=== PATIENT | female | born 1935 | race Caucasian/White ===

== ENCOUNTER 2016-06-16 13:02 | Outpatient (CLI) | payer MEDICARE, OTHER | END 2016-06-16 13:03 | disposition home or self-care (01) | DX: E78.5 Hyperlipidemia, unspecified (principal); I10 Essential (primary) hypertension ==

== ENCOUNTER 2016-09-14 11:11 | Outpatient (CLI) | payer MEDICARE, OTHER ==
[2016-09-14 13:04] LABS: ALBUMIN/GLOBULIN RATIO 1.2 (1.0-2.2); BILIRUBIN,TOTAL 0.8 mg/dL (0.2-1.0); CALCIUM 9.3 mg/dL (8.5-10.3); CREATININE 0.9 mg/dL (0.4-1.0); POTASSIUM 4.1 mmol/L (3.5-5.0)
== END 2016-09-14 11:12 | disposition home or self-care (01) ==
LOC: LAB.N 11:11
PROVIDERS: ATTEND Family Medicine
DX: F33.9 Major depressive disorder, recurrent, unspecified (principal)
CPT/HCPCS: 36415; 80053

== ENCOUNTER 2017-02-23 19:25 | Outpatient (CLI) | payer MEDICARE, OTHER ==
[2017-02-23 19:18] LABS: CREATININE 0.8 mg/dL (0.4-1.0)
== END 2017-02-23 19:26 | disposition home or self-care (01) ==
LOC: LAB.N 19:25
PROVIDERS: ATTEND Family Medicine
DX: F03.90 Unspecified dementia, unspecified severity, without behavioral disturbance, psychotic disturbance, mood disturbance, and anxiety (principal); I10 Essential (primary) hypertension
CPT/HCPCS: 36415; 82565; 84520

== ENCOUNTER 2017-05-11 08:00 | Outpatient (CLI) | payer MEDICARE, OTHER | END 2017-05-11 08:01 | disposition home or self-care (01) | LOC: LAB.R 08:00 | PROVIDERS: ATTEND Family Medicine | DX: N39.46 Mixed incontinence (principal) | CPT/HCPCS: 87086 ==

== ENCOUNTER 2021-02-21 12:19 | Outpatient (CLI) | payer MEDICARE, OTHER | END 2021-02-21 12:20 | disposition critical access hospital (66) | LOC: EMS 12:19 | DX: R46.4 Slowness and poor responsiveness (principal) | CPT/HCPCS: A0425; A0427 ==

== ENCOUNTER 2021-02-21 12:32 | Inpatient (IN) | payer MEDICARE, OTHER ==
--- NOTE | 2021-02-21 12:46 | ED Physician Documentation ---
PD HPI ALTERED MENTAL STATUS - Stated complaint Stated Complaint: FOUND UNRESPONSIVE - Chief complaint Chief Complaint: Neuro - History obtained from History obtained from: EMS - History of Present Illness Timing - onset: Today Contributing factors: Known dementia Basline status: Ambulatory Treatment FORGE HAND: Accucheck Similar symptoms before: Has not had sx before - Additional information Additional information: Patient is an 85-year-old female who presents to the emergency department with altered mental status today. History is from EMS. Per EMS she does have a longstanding history of dementia, but is normally verbal and oriented to person and place. Today the found her in bed and she was difficult to arouse and not speaking. 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 No trauma. No changes to her medications. EMS states no fevers. They did state that she was hypoxic upon their arrival and they placed her on supplemental oxygen. Blood sugar was normal. Review of Systems Unable to obtain: AMS, Dementia PD PAST MEDICAL HISTORY - Past Medical History Past Medical History: Yes Neuro: Dementia - Present Medications Home Medications: Ambulatory Orders Medication Instructions Recorded Confirmed Albuterol Sulfate [Proair Hfa 2 puffs INH Q4HR 02/21/21 02/21/21 Inhaler] Amlodipine Besylate [Norvasc] 2.5 mg PO BID 02/21/21 02/21/21 Aspirin/Dipyridamole 1 tab PO BID 02/21/21 02/21/21 [Aspirin-Dipyridam ER 25-200 mg] Citalopram [CeleXA] 30 mg PO DAILY 02/21/21 02/21/21 Desipramine HCl 100 mg PO HS 02/21/21 02/21/21 Donepezil [Aricept] 10 mg PO HS 02/21/21 02/21/21 HYDROcod/ACETAM 5/325 [[place] 5/325] 1 tab PO Q4HR 02/21/21 02/21/21 Loratadine [Claritin] 10 mg PO BID 02/21/21 02/21/21 Losartan Potassium [Cozaar] 100 mg PO DAILY 02/21/21 02/21/21 Memantine HCl [Namenda] 10 mg PO BID 02/21/21 02/21/21 Metoprolol Succinate [Kapspargo 50 mg PO DAILY 02/21/21 02/21/21 Sprinkle] Multivitamin 1 tab PO DAILY 02/21/21 02/21/21 Nystatin Cream [Mycostatin Cream] 1 applic TOP QID 02/21/21 02/21/21 Omeprazole Magnesium 40 mg PO QDAC 02/21/21 02/21/21 Solifenacin Succinate [Vesicare] 10 mg PO DAILY 02/21/21 02/21/21 polyethylene glycoL 3350 17 gm PO DAILY 02/21/21 02/21/21 [Polyethylene Glycol 3350] - Allergies Allergies/Adverse Reactions: Allergies Allergy/AdvReac Type Severity Reaction Status Date / Time amoxicillin Allergy Unknown Verified 02/21/21 12:44 guaifenesin Allergy Unknown Verified 02/21/21 12:44 - Living Situation Living Situation: reports: With family Living Arrangement: reports: At home - Social History Does the pt smoke?: No Does the pt drink ETOH?: No Does the pt have substance abuse?: No - Family History Family history: reports: Non contributory PD ED PE NORMAL - Vitals Vital signs reviewed: Yes - General General: No acute distress, Other (urine soaked diaper and clothes) - HEENT HEENT: PERRL, Other (dry lips and tongue) - Neck Neck: Supple, no meningeal sign - Cardiac Cardiac: RRR - Respiratory Respiratory: No respiratory distress, Clear bilaterally - Abdomen Abdomen: Soft, Non tender, Non distended - Derm Derm: Other (small wound to the R upper thigh) - Extremities Extremities: Other (1+ BLE edema) - Neuro Neuro: Other (alert, but non-verbal) Eye Opening: Spontaneous Motor: Withdraws to Pain Verbal: Inappropriate GCS Score: 11 Results - Vitals Vitals: Vital Signs - 24 hr 02/21/21 02/21/21 02/21/21 12:36 14:00 14:30 Temperature 37.7 C Heart Rate 75 73 81 Respiratory 18 14 18 Rate Blood Pressure 147/89 H 157/68 H 164/125 H O2 Saturation 98 96 96 Oxygen O2 Source Room air - EKG (time done) 1324 Rate: Rate (enter#) (73) Rhythm: NSR [place]: Normal Intervals: Prolonged MD QRS: Normal, LVH Ischemia: Q waves (III, aVF) - Labs Labs: Laboratory Tests 02/21/21 02/21/21 02/21/21 13:08 13:08 13:08 WBC 6.8 RBC 3.69 L Hgb 11.5 L Hct 36.5 L MCV 98.9 MCH 31.2 H MCHC 31.5 L RDW 13.0 Plt Count 204 MPV 9.0 Neut # (Auto) 4.9 Lymph # (Auto) 1.1 L [place] # (Auto) 0.6 Eos # (Auto) 0.1 Baso # (Auto) 0.1 Absolute Nucleated RBC 0.00 Nucleated RBC % 0.0 Sodium 138 Potassium 3.9 Chloride 101 Carbon Dioxide 28 Anion Gap 9.0 BUN 17 Creatinine 0.9 Estimated GFR (MDRD) 60 L Glucose 104 H Lactic Acid Calcium 8.6 Total Bilirubin 0.8 AST 27 ALT 19 Alkaline Phosphatase 64 Troponin I High Sens Total Protein 6.6 L Albumin 3.6 Globulin 3.0 Albumin/Globulin Ratio 1.2 Lipase 19 L TSH 3.53 Urine Color Urine Clarity Urine pH Ur Specific [place] Urine Protein Urine Glucose (UA) Urine Ketones Urine Occult Blood Urine Nitrite Urine Bilirubin Urine Urobilinogen Ur Leukocyte Esterase Urine RBC Urine WBC Ur Squamous Epith Cells Urine Bacteria Ur Microscopic Review Urine Culture Comments Nasal Adenovirus (PCR) Nasal B. parapertussis DNA (PCR) Nasal Coronavir 229E PCR Nasal Coronavir HKU1 PCR Nasal Coronavir NL63 PCR Nasal Coronavir OC43 PCR Nasal Enterovir/Rhinovir PCR Nasal Influenza B PCR Nasal Influenza A PCR Nasal Parainfluen 1 PCR Nasal Parainfluen 2 PCR Nasal Parainfluen 3 PCR Nasal Parainfluen 4 PCR Nasal RSV (PCR) Nasal B.pertussis DNA PCR Nasal C.pneumoniae (PCR) George Human Metapneumo PCR Nasal M.pneumoniae (PCR) Nasal SARS-CoV-2 (PCR) Salicylates < 6.0 Urine Opiates Screen Ur Oxycodone Screen Urine Methadone Screen Ur Propoxyphene Screen Acetaminophen < 10 L Ur Barbiturates Screen Ur Tricyclics Screen Ur Phencyclidine Scrn Ur Amphetamine Screen U Methamphetamines Scrn U Benzodiazepines Scrn Urine Cocaine Screen U Cannabinoids Screen Ethyl Alcohol < 5.0 02/21/21 02/21/21 02/21/21 13:08 13:36 13:46 WBC RBC Hgb Hct MCV MCH MCHC RDW Plt Count MPV Neut # (Auto) Lymph # (Auto) [place] # (Auto) Eos # (Auto) Baso # (Auto) Absolute Nucleated RBC Nucleated RBC % Sodium Potassium Chloride Carbon Dioxide Anion Gap BUN Creatinine Estimated GFR (MDRD) Glucose Lactic Acid Calcium Total Bilirubin AST ALT Alkaline Phosphatase Troponin I High Sens 1445.2 H* Total Protein Albumin Globulin Albumin/Globulin Ratio Lipase TSH Urine Color YELLOW Urine Clarity CLOUDY Urine pH 7.5 Ur Specific [place] 1.020 Urine Protein 30 H Urine Glucose (UA) NEGATIVE Urine Ketones NEGATIVE Urine Occult Blood MODERATE H Urine Nitrite NEGATIVE Urine Bilirubin NEGATIVE Urine Urobilinogen 0.2 (NORMAL) Ur Leukocyte Esterase MODERATE H Urine RBC 0-5 Urine WBC >25 H Ur Squamous Epith Cells FEW Squamous Urine Bacteria Many H Ur Microscopic Review INDICATED Urine Culture Comments INDICATED Nasal Adenovirus (PCR) NOT DETECTED Nasal B. parapertussis DNA (PCR) NOT DETECTED Nasal Coronavir 229E PCR NOT DETECTED Nasal Coronavir HKU1 PCR NOT DETECTED Nasal Coronavir NL63 PCR NOT DETECTED Nasal Coronavir OC43 PCR NOT DETECTED Nasal Enterovir/Rhinovir PCR NOT DETECTED Nasal Influenza B PCR NOT DETECTED Nasal Influenza A PCR NOT DETECTED Nasal Parainfluen 1 PCR NOT DETECTED Nasal Parainfluen 2 PCR NOT DETECTED Nasal Parainfluen 3 PCR NOT DETECTED Nasal Parainfluen 4 PCR NOT DETECTED Nasal RSV (PCR) NOT DETECTED Nasal B.pertussis DNA PCR NOT DETECTED Nasal C.pneumoniae (PCR) NOT DETECTED [place] Human Metapneumo PCR NOT DETECTED Nasal M.pneumoniae (PCR) NOT DETECTED Nasal SARS-CoV-2 (PCR) NOT DETECTED Salicylates Urine Opiates Screen NEGATIVE Ur Oxycodone Screen NEGATIVE Urine Methadone Screen NEGATIVE Ur Propoxyphene Screen NEGATIVE Acetaminophen Ur Barbiturates Screen NEGATIVE Ur Tricyclics Screen NEGATIVE Ur Phencyclidine Scrn NEGATIVE Ur Amphetamine Screen NEGATIVE U Methamphetamines Scrn NEGATIVE U Benzodiazepines Scrn NEGATIVE Urine Cocaine Screen NEGATIVE U Cannabinoids Screen NEGATIVE Ethyl Alcohol 02/21/21 13:51 WBC RBC Hgb Hct MCV MCH MCHC RDW Plt Count MPV Neut # (Auto) Lymph # (Auto) [place] # (Auto) Eos # (Auto) Baso # (Auto) Absolute Nucleated RBC Nucleated RBC % Sodium Potassium Chloride Carbon Dioxide Anion Gap BUN Creatinine Estimated GFR (MDRD) Glucose Lactic Acid 0.8 Calcium Total Bilirubin AST ALT Alkaline Phosphatase Troponin I High Sens Total Protein Albumin Globulin Albumin/Globulin Ratio Lipase TSH Urine Color Urine Clarity Urine pH Ur Specific [place] Urine Protein Urine Glucose (UA) Urine Ketones Urine Occult Blood Urine Nitrite Urine Bilirubin Urine Urobilinogen Ur Leukocyte Esterase Urine RBC Urine WBC Ur Squamous Epith Cells Urine Bacteria Ur Microscopic Review Urine Culture Comments Nasal Adenovirus (PCR) Nasal B. parapertussis DNA (PCR) Nasal Coronavir 229E PCR Nasal Coronavir HKU1 PCR Nasal Coronavir NL63 PCR Nasal Coronavir OC43 PCR Nasal Enterovir/Rhinovir PCR Nasal Influenza B PCR Nasal Influenza A PCR Nasal Parainfluen 1 PCR Nasal Parainfluen 2 PCR Nasal Parainfluen 3 PCR Nasal Parainfluen 4 PCR Nasal RSV (PCR) Nasal B.pertussis DNA PCR Nasal C.pneumoniae (PCR) [place] Human Metapneumo PCR Nasal M.pneumoniae (PCR) Nasal SARS-CoV-2 (PCR) Salicylates Urine Opiates Screen Ur Oxycodone Screen Urine Methadone Screen Ur Propoxyphene Screen Acetaminophen Ur Barbiturates Screen Ur Tricyclics Screen Ur Phencyclidine Scrn Ur Amphetamine Screen U Methamphetamines Scrn U Benzodiazepines Scrn Urine Cocaine Screen U Cannabinoids Screen Ethyl Alcohol - Rads (name of study) head CT Radiology: Final report received, EMP read contemporaneously, See rad report (No acute intracranial abnormality. Volume loss and small vessel ischemic disease) cxr Radiology: Final report received, EMP read contemporaneously, See rad report chest CT Radiology: Final report received, EMP read contemporaneously, See rad report PD MEDICAL DECISION MAKING - ED course Complexity details: reviewed results, re-evaluated patient, considered differential, d/w family, d/w architectural sales consultant ED course: 85-year-old female presents to the emergency department altered mental status. She is found to have an NSTEMI that she has significant dementia. The family states that she is DNR with limited interventions and they do have a POLST form. They state that she would not want cardiac catheterization or stents and they do not believe that she would likely survive the procedure. The patient also has a UTI and we will place on antibiotics for this. She was given Lovenox for the NSTEMI. We will admit for further care. Discussed the case with the hospitalist, Dr. Colbert who accepts This document was made in part using voice recognition software. While efforts are made to proofread this document, sound alike and grammatical errors may occur. 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 Mild cardiomegaly Additional chronic and incidental findings as above. Departure - Departure Disposition: 66 [facility] DC/Xfer Clinical Impression: NSTEMI (non-ST elevated myocardial infarction) Altered mental status Qualifiers: Altered mental status type: somnolence Qualified Code(s): R40.0 - Somnolence UTI (urinary tract infection) Qualifiers: Urinary tract infection type: acute cystitis Hematuria presence: without hematuria Qualified Code(s): N30.00 - Acute cystitis without hematuria Condition: Stable Discharge Date/Time: 02/21/21 16:03
--- NOTE | 2021-02-21 13:11 | XRAY Report ---
PROCEDURE: Chest 1 View X-Ray INDICATIONS: hypoxia TECHNIQUE: One view of the chest was acquired. COMPARISON: None FINDINGS: Surgical changes and devices: None. Lungs and pleura: No pleural effusions or pneumothorax. Masslike opacity noted adjacent to the right margin of the heart which may represent pericardial cyst or fat however lung masses not excluded by this study. Mediastinum: Mediastinal contours appear normal. Heart is enlarged. Bones and chest wall: No suspicious bony lesions. Overlying soft tissues appear unremarkable. IMPRESSION: Masslike opacity in the medial aspect of the right lung base. Finding may be related to pericardial c yst or fat, however neoplastic process involving the right lung is not excluded by this study. Recomm end CT scan of the chest for additional evaluation when clinically feasible. Reviewed by: Adelaida Hercules MD, PhD on 02/21/2021 1:10 PM PST Approved by: Adelaida Hercules MD, PhD on 02/21/2021 1:10 PM [facility] Station ID: [id number]
[2021-02-21 13:14] LABS: BASOPHILS # (AUTO) 0.1 10^3/uL (0.0-0.1); BASOPHILS % (AUTO) 0.7 %; EOSINOPHILS # (AUTO) 0.1 10^3/uL (0.0-0.7); EOSINOPHILS % (AUTO) 1.9 %; HCT - HEMATOCRIT 36.5 % (37.0-47.0); HGB - HEMOGLOBIN 11.5 g/dL (12.0-16.0); LYMPHOCYTES # (AUTO) 1.1 10^3/uL (1.5-3.5); LYMPHOCYTES % (AUTO) 16.3 %; MEAN CORPUSCULAR HEMOGLOBIN 31.2 pg (27.0-31.0); MEAN CORPUSCULAR HGB CONC 31.5 g/dL (32.0-36.0); MEAN CORPUSCULAR VOLUME 98.9 fL (81.0-99.0); MONOCYTES # (AUTO) 0.6 10^3/uL (0.0-1.0); NEUTROPHILS # (AUTO) 4.9 10^3/uL (1.5-6.6); NEUTROPHILS % (AUTO) 71.8 %; PLT - PLATELET COUNT 204 10^3/uL (130-450); RED BLOOD COUNT 3.69 10^6/uL (4.20-5.40); WHITE BLOOD COUNT 6.8 x10^3/uL (4.8-10.8)
--- NOTE | 2021-02-21 13:27 | CT Report ---
PROCEDURE: HEAD WO INDICATIONS: altered mental status TECHNIQUE: Noncontrast 4.5 mm thick angled axial sections acquired from the foramen magnum to the vertex. For r adiation dose reduction, the following was used: automated exposure control, adjustment of mA and/or kV according to patient size. COMPARISON: None. FINDINGS: Image quality: Excellent. CSF spaces: Basal cisterns are patent. No extra-axial fluid collections. Ventricles are normal in size and shape. Brain: No midline shift. No intracranial masses or hemorrhage. Moderate diffuse cerebral volume los s. Moderate degree of patchy low density within the periventricular and subcortical white matter. Gra y-white matter interface is normal. Skull and face: Calvarium and visualized facial bones are intact, without suspicious lesions. Sinuses: Visualized sinuses and mastoids are clear. IMPRESSION: No acute intracranial abnormality. Volume loss and small vessel ischemic disease. Reviewed by: Monet Cosby MD on 02/21/2021 1:25 PM PST Approved by: Monet Cosyb MD on 02/21/2021 1:25 PM [facility] Station ID: [id number]
[2021-02-21 13:34] LABS: ACETAMINOPHEN < 10 ug/mL (10-30); ALBUMIN 3.6 g/dL (3.2-5.5); ALBUMIN/GLOBULIN RATIO 1.2 (1.0-2.2); ALKALINE PHOSPHATASE 64 IU/L (42-121); ALT ALANINE AMINOTRANSFERASE 19 IU/L (10-60); AST ASPARTATE AMINOTRANSFERASE 27 IU/L (10-42); BILIRUBIN,TOTAL 0.8 mg/dL (0.2-1.0); BUN - BLOOD UREA NITROGEN 17 mg/dL (6-20); CALCIUM 8.6 mg/dL (8.5-10.3); CARBON DIOXIDE - CO2 28 mmol/L (21-32); CHLORIDE 101 mmol/L (101-111); CREATININE 0.9 mg/dL (0.4-1.0); ETOH - ETHANOL < 5.0 mg/dL; GFR - MDRD 60 (>89); GLUCOSE 104 mg/dL (70-100); LIPASE 19 U/L (22-51); POTASSIUM 3.9 mmol/L (3.5-5.0); SALICYLATE < 6.0 mg/dL; SODIUM 138 mmol/L (135-145); TOTAL PROTEIN 6.6 g/dL (6.7-8.2)
[2021-02-21 13:47] LABS: MUDS CUTOFF CONCENTRATIONS CUTOFF CONC BELOW:
[2021-02-21 13:51] LABS: BILIRUBIN,URINE NEGATIVE (NEGATIVE); GLUCOSE, URINE (UA) NEGATIVE (NEGATIVE); KETONES,URINE (UA) NEGATIVE (NEGATIVE); LEUKOCYTE ESTERASE, URINE MODERATE (NEGATIVE); NITRITE,URINE NEGATIVE (NEGATIVE); OCCULT BLOOD,URINE MODERATE (NEGATIVE); PH,URINE 7.5 PH (5.0-7.5); PROTEIN,URINE 30 mg/dL (NEGATIVE); UROBILINOGEN,URINE 0.2 (NORMAL) E.U./dL (NORMAL)
[2021-02-21 13:59] LABS: CLARITY,URINE CLOUDY (CLEAR)
[2021-02-21 14:02] LABS: AMPHETAMINE SCREEN,URINE NEGATIVE (NEGATIVE); BARBITURATE SCREEN,UR NEGATIVE (NEGATIVE); BENZODIAZEPINES SCREEN, URINE NEGATIVE (NEGATIVE); COCAINE SCREEN URINE NEGATIVE (NEGATIVE); METHADONE SCREEN, URINE NEGATIVE (NEGATIVE); METHAMPHETAMINES SCREEN, URINE NEGATIVE (NEGATIVE); OPIATE SCREEN, URINE NEGATIVE (NEGATIVE); OXYCODONE SCREEN, URINE NEGATIVE (NEGATIVE); PROPOXYPHENE SCREEN, URINE NEGATIVE (NEGATIVE); THC CANNABINOID SCREEN, URINE NEGATIVE (NEGATIVE); TRICYCLIC ANTIDEPRESSANT,URINE NEGATIVE (NEGATIVE)
[2021-02-21 14:10] LABS: RBC,URINE 0-5 /HPF (0-5); SQUAMOUS EPITHELIAL CELL,UR FEW Squamous (<= Few); WBC,URINE >25 /HPF (0-5)
[2021-02-21 14:11] LABS: BACTERIA,URINE Many /HPF (None Seen)
[2021-02-21] MEDS ORDERED: IOVERSOL 320 100 ML VIAL IVP ONE ×2 (14:14→14:37)
--- NOTE | 2021-02-21 14:48 | CT Report ---
PROCEDURE: CHEST W INDICATIONS: possible mass on CXR CONTRAST: IV CONTRAST: Optiray 320 ml: 100 PO CONTRAST: *NO PO CONTRAST TECHNIQUE: After the administration of intravenous contrast, 5 mm thick sections acquired from the pulmonary api nargis to the posterior costophrenic angles. 7 mm thick coronal MIP reformats were acquired. For radia tion dose reduction, the following was used: automated exposure control, adjustment of mA and/or kV according to patient size. COMPARISON: Chest radiograph dated 02/21/2021 FINDINGS: CHEST: Lungs: Scattered subsegmental scarring/atelectasis. No acute consolidation. Right posterior diaphrag matic hernia containing stomach and fat accounting for the radiographic opacity on the comparison radha dy. There is adjacent atelectasis. No discrete mass lesion. Pleura: No pleural effusion or pneumothorax. Heart: Mildly enlarged. No pericardial effusion. There is mitral valvular and coronary artery calcifi cations, moderate Lymph nodes: Normal. Thyroid: Low-attenuation 9 mm nodule involving the right lobe of the thyroid which would be better as sessed with ultrasound as clinically warranted. Aorta: Enlargement of the keisha ascending thoracic aorta measuring proximally 4.5 cm in diameter. Scatt ered atheromatous calcifications seen in the aorta. Pulmonary arteries: r Esophagus: Normal. Bones: Diffuse spondolytic changes and facet arthropathy. No compression fracture. There is severe k yphosis. Diffuse osteopenia. 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 Mild cardiomegaly Additional chronic and incidental findings as above. Reviewed by: Saeid Milian MD on 02/21/2021 2:47 PM PST Approved by: Saeid Milian MD on 02/21/2021 2:47 PM PST Station ID: [id number]
[2021-02-21] MEDS ORDERED: ENOXAPARIN 80 MG/0.8 ML SYRINGE SUBQ STA (14:51)
[2021-02-21] MEDS ORDERED: cefTRIAXone 1 GM VIAL IVP STA (14:52)
[2021-02-21] MEDS ORDERED: ONDANSETRON 4 MG/2 ML VIAL IVP PRN (14:52)
[2021-02-21] MEDS ORDERED: ACETAMINOPHEN 325 MG TABLET PO PRN (14:52)
[2021-02-21] MEDS ORDERED: SODIUM CHLORIDE 0.9% 1,000 ML IV SCH (15:00)
[2021-02-21 15:10] LABS: CORONAVIRUS 229E-RESP PCR NOT DETECTED; CORONAVIRUS HKU1-RESP PCR NOT DETECTED; CORONAVIRUS NL63-RESP PCR NOT DETECTED; CORONAVIRUS OC43-RESP PCR NOT DETECTED; HUMAN METAPNEUMOVIRUS NOT DETECTED; INFLUENZA A- RESP PCR PANEL NOT DETECTED; RHINOVIRUS/ENTEROVIRUS NOT DETECTED; SARS-CoV-2 -RESP PCR PANEL NOT DETECTED
[2021-02-21 15:11] LABS: B. PARAPERTUSSIS- RESP PCR PAN NOT DETECTED; B. PERTUSSIS- RESP PCR PANEL NOT DETECTED; C. PNEUMONIAE- RESP PCR PANEL NOT DETECTED; INFLUENZA B - RESP PCR PANEL NOT DETECTED; M. PNEUMONIAE- RESP PCR PANEL NOT DETECTED; PARAINFLUENZA VIRUS 1 NOT DETECTED; PARAINFLUENZA VIRUS 2 NOT DETECTED; PARAINFLUENZA VIRUS 3 NOT DETECTED; PARAINFLUENZA VIRUS 4 NOT DETECTED; RSV- RESP PCR PANEL NOT DETECTED
--- NOTE | 2021-02-21 15:13 | HISTORY & PHYSICAL EXAMINATION ---
Chief Complaint - Chief Complaint Chief Complaint: unresponsive History of Present Illness - Admitted From Admitted From:: [facility] ED - History Obtained From Records Reviewed: yes History obtained from: ED physician and patient's family members Exam Limitations: altered mental status, dementia - History of Present Illness HPI Comment/Other: Patient is an 85-year-old female with medical history significant for previous CVA with right-sided residual weakness and contracture, dementia, hypertension, depression, GERD, overactive bladder who was brought to the ED by EMS. Her called 911 this morning because the patient was unresponsive this morning around 10 am when he tried to wake her up At bedside the patient is unresponsive to verbal stimuli. The reports that she complained of mild left leg pain before bed the previous night. In the ED work-up included troponin level which came back at 1445.2. Urine analysis was also suggestive of a UTI. Family opted for conservative/medical management only. As a result the patient was presented for admission for further treatment. 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 Patient lives at home with her and daughter. She is completely dependent for activities of daily living. She is maximum assist and nonweightbearing. She has contracture in her right upper extremity from a previous CVA and significant rigidity of her right lower extremity. She is bedridden/wheelchair bound. - Substance History Use: Uses substance without health or social issues: Cocaine - POLST Patient has POLST: No POLST Status: DNR (Discussed with ) Meds/Allgy - Home Medications Home Medications: Ambulatory Orders Medication Instructions Recorded Confirmed Albuterol Sulfate [Proair Hfa 2 puffs INH Q4HR 02/21/21 02/21/21 Inhaler] Amlodipine Besylate [Norvasc] 2.5 mg PO BID 02/21/21 02/21/21 Aspirin/Dipyridamole 1 tab PO BID 02/21/21 02/21/21 [Aspirin-Dipyridam ER 25-200 mg] Citalopram [CeleXA] 30 mg PO DAILY 02/21/21 02/21/21 Desipramine HCl 100 mg PO HS 02/21/21 02/21/21 Donepezil [Aricept] 10 mg PO HS 02/21/21 02/21/21 HYDROcod/ACETAM 5/325 [[place] 5/325] 1 tab PO Q4HR 02/21/21 02/21/21 Loratadine [Claritin] 10 mg PO BID 02/21/21 02/21/21 Losartan Potassium [Cozaar] 100 mg PO DAILY 02/21/21 02/21/21 Memantine HCl [Namenda] 10 mg PO BID 02/21/21 02/21/21 Metoprolol Succinate [Kapspargo 50 mg PO DAILY 02/21/21 02/21/21 Sprinkle] Multivitamin 1 tab PO DAILY 02/21/21 02/21/21 Nystatin Cream [Mycostatin Cream] 1 applic TOP QID 02/21/21 02/21/21 Omeprazole Magnesium 40 mg PO DAILY 02/21/21 02/21/21 Solifenacin Succinate [Vesicare] 10 mg PO DAILY 02/21/21 02/21/21 polyethylene glycoL 3350 17 gm PO DAILY 02/21/21 02/21/21 [Polyethylene Glycol 3350] - Allergies Allergies/Adverse Reactions: Allergies Allergy/AdvReac Type Severity Reaction Status Date / Time amoxicillin Allergy Unknown Verified 02/21/21 12:44 guaifenesin Allergy Unknown Verified 02/21/21 12:44 Review of Systems - Constitutional Constitutional: denies: Fever, Chills - Eyes Eyes: denies: Pain - Ears, Nose & Throat Ears, Nose & Throat: denies: Sore throat - Cardiovascular Cariovascular: denies: Irregular heart rate, Palpitations, Chest pain, Edema, Lightheadedness, Syncope - Respiratory Respiratory: denies: Cough, Wheezing, SOB at rest, SOB with exertion - Gastrointestinal Gastrointestinal: denies: Abdominal pain, Abdominal distention, Constipation, Diarrhea, Bloody stools, Nausea, Vomiting - Genitourinary Genitourinary: reports: Incontinence. denies: Dysuria, Frequency, Urgency, Hematuria - Musculoskeletal Musculoskeletal: reports: Other (Right sided residual weakness from previous CVA). denies: Muscle pain, Back pain, Muscle aches - Integumentary Integumentary: denies: Rash, Pruritis, Lesions, Dryness - Neurological Neurological: reports: Focal weakness (Right sided residual weakness from prev ious CVA with contracture). denies: General weakness, Headache, Dizziness - Psychiatric Psychiatric: reports: Depression. denies: Anxiety - Endocrine Endocrine: denies: Polyuria, Polydypsia - Hematologic/Lymphatic Hematologic/Lymphatic: denies: Anemia, Bruising Prior Level of Functionality: Patient has dementia at baseline Patient lives at home with her and daughter. She is completely dependent for activities of daily living. She is maximum assist and nonweightbearing. She has contracture in her right upper extremity from a previous CVA and significant rigidity of her right lower extremity. She is bedridden/wheelchair bound. Exam - Vital Signs Vital Signs: Vital Signs x48h Temp Pulse Resp BP Pulse Ox 02/21/21 15:09 83 19 173/78 H 97 02/21/21 14:30 81 18 164/125 H 96 02/21/21 14:00 73 14 157/68 H 96 02/21/21 12:36 37.7 C 75 18 147/89 H 98 - Physical Exam General Appearance: positive: No acute distress, Other (Unresponsive to tactile or verbal stimuli) Eyes Bilateral: positive: PERRL, EOMI ENT: positive: No signs of dehydration Neck: positive: No JVD, Trachea midline Respiratory: positive: Chest non-tender, No respiratory distress, Breath sounds nml. negative: Wheezes, Rales, Rhonchi Cardiovascular: positive: Regular rate & rhythm, Systolic murmur (3/6 blowing. Known murmur for manay years) Abdomen: positive: Non-tender, No organomegaly, Nml bowel sounds, No distention. negative: Guarding, Rebound Back: positive: Nml inspection Skin: positive: Color nml, No rash, Warm, Dry Extremities: positive: Non-tender, Full ROM, Nml appearance, No pedal edema Neurologic/Psychiatric: positive: Disoriented to person, Disoriented to place, Disoriented to time Conclusion/Plan - Problem List (1) NSTEMI (non-ST elevated myocardial infarction) Conclusion/Plan: Initial troponin was 1445.2. Will trend times tomorrow. Family opted for conservative/medical management and no cardiology consult or intervention. Lovenox 1 mg/kg twice daily. Aspirin 300mg CT ordered. Metoprolol tartrate 5mg q6hrs scheduled ordered 0.5 inch nitropaste patch applied Will resume patient's oral medications when she is able to take po Will obtain a 2D echocardiogram when available. (2) UTI (urinary tract infection) Conclusion/Plan: Urine and blood cultures pending. Patient started on Rocephin 1 g IV daily. Will continue. Qualifiers: Urinary tract infection type: acute cystitis Hematuria presence: without hematuria Qualified Code(s): N30.00 - Acute cystitis without hematuria (3) Altered mental status Conclusion/Plan: This could be multifactorial. Secondary to NSTEMI, UTI and patient's underlying dementia. Treating urinary tract infection with antibiotics. We will continue patient's medications for dementia. Qualifiers: Altered mental status type: somnolence Qualified Code(s): R40.0 - Somnolence (4) Hypertension Conclusion/Plan: Metoprolol tartrate and hydralazine ordered IV. Patient also has a Nitropaste patch in place. We will resume patient's oral medications: losartan and amlodipine when able to take po. (5) Dementia Conclusion/Plan: On Aricept 10 mg p.o. every afternoon. On Namenda 100 mg p.o. twice daily. We will also continue patient's citalopram 30 mg p.o. daily. (6) GERD (gastroesophageal reflux disease) Conclusion/Plan: 40 mg p.o. daily AC. (7) Depression Conclusion/Plan: On citalopram 30 mg p.o. daily. (8) Overactive bladder Conclusion/Plan: On Vesicare. - Lab Results Fish Bones: 02/21/21 13:08 02/21/21 13:08 Core Measures - Anticipated LOS I expect patient to be DC'd or transferred within 96 hours.: Yes - DVT/VTE - Prophylaxis VTE/DVT Device ordered at admit?: Yes VTE/DVT Prophylaxis med ordered at admit?: Yes - Stroke - Rehab Assessment Rehab services assessment to be ordered?: Yes - AMI - Statin at Admit Aspirin Prescribed on Admit: Yes
[2021-02-21] MEDS ORDERED: ASPIRIN 325 MG TABLET PO STA (15:27)
[2021-02-21] MEDS ORDERED: METOPROLOL SUCCINATE 50 MG TABLET PO SCH (15:29)
[2021-02-21] MEDS ORDERED: NITROGLYCERIN 2% PASTE TOP STA (16:33)
[2021-02-21] MEDS ORDERED: hydrALAZINE INJ 20 MG/ML VIAL IVP PRN (16:35)
[2021-02-21] MEDS ORDERED: ASPIRIN 300 MG SUPP PR STA (16:36)
[2021-02-21] MEDS: DEXTROSE 5%-0.45% NACL 1,000 ML IV SCH (16:54)
[2021-02-21] MEDS: SODIUM CHLORIDE FLUSH 0.9% 10 ML SYRINGE IVP SCH (17:23)
[2021-02-21] MEDS: METOPROLOL 5 MG/5 ML VIAL IVP SCH (18:18)
[2021-02-21] MEDS: NITROGLYCERIN 0.2 MG/HR PATCH TOP SCH (20:39)
[2021-02-21] MEDS: amLODIPine 5 MG TABLET PO SCH (21:37)
[2021-02-21] MEDS: MEMANTINE 5 MG TABLET PO SCH (21:37)
[2021-02-21] MEDS: DONEPEZIL 5 MG TABLET PO SCH (21:37)
[2021-02-22] MEDS: SODIUM CHLORIDE FLUSH 0.9% 10 ML SYRINGE IVP SCH ×3 (00:42→16:32)
[2021-02-22] MEDS: METOPROLOL 5 MG/5 ML VIAL IVP SCH ×4 (00:42→17:52)
[2021-02-22] MEDS: ENOXAPARIN 80 MG/0.8 ML SYRINGE SUBQ SCH ×2 (06:12→20:51)
[2021-02-22] MEDS: PANTOPRAZOLE 40 MG VIAL IVP SCH (06:12)
[2021-02-22] MEDS: DEXTROSE 5%-0.45% NACL 1,000 ML IV SCH ×2 (06:13→20:51)
[2021-02-22 06:34] LABS: BASOPHILS # (AUTO) 0.1 10^3/uL (0.0-0.1); BASOPHILS % (AUTO) 0.7 %; EOSINOPHILS # (AUTO) 0.1 10^3/uL (0.0-0.7); HCT - HEMATOCRIT 33.4 % (37.0-47.0); HGB - HEMOGLOBIN 10.8 g/dL (12.0-16.0); LYMPHOCYTES % (AUTO) 14.6 %; MEAN CORPUSCULAR HGB CONC 32.3 g/dL (32.0-36.0); MEAN PLATELET VOLUME 9.2 fL (7.9-10.8); MONOCYTES # (AUTO) 0.7 10^3/uL (0.0-1.0); MONOCYTES % (AUTO) 10.2 %; NEUTROPHILS # (AUTO) 4.9 10^3/uL (1.5-6.6); NEUTROPHILS % (AUTO) 73.4 %; PLT - PLATELET COUNT 197 10^3/uL (130-450); RED BLOOD COUNT 3.48 10^6/uL (4.20-5.40); RED CELL DISTRIBUTION WIDTH 12.7 % (12.0-15.0); WHITE BLOOD COUNT 6.7 x10^3/uL (4.8-10.8)
[2021-02-22 06:42] LABS: CALCIUM 8.5 mg/dL (8.5-10.3); CREATININE 0.9 mg/dL (0.4-1.0); POTASSIUM 3.5 mmol/L (3.5-5.0)
[2021-02-22] MEDS ORDERED: PANTOPRAZOLE 40 MG TABLET PO SCH (07:00)
--- NOTE | 2021-02-22 08:26 | PROVIDER PROGRESS NOTE ---
Assessment/Plan - Problem List (1) NSTEMI (non-ST elevated myocardial infarction) Assessment/Plan: Troponin continues to trend upwards from 1445.2 then 1862.2 then 1933 then 1988.7 and 2010.0. Wiil continue to trend Will discontinue Lovenox when troponin levels starts trending down. Continue aspirin 300 mg [place]. Metoprolol tartrate 5 mg IV every 6 hours scheduled. Nitropatch 0.2 mg daily but taken off at 11 PM every day. 2D echocardiogram on Wednesday. If no clinical improvement by 02/24/2021 we will discuss goals of care with the patient's . This would include the possibility of hospice. (2) UTI (urinary tract infection) Qualifiers: Urinary tract infection type: acute cystitis Hematuria presence: without hematuria Qualified Code(s): N30.00 - Acute cystitis without hematuria Assessment/Plan: Urine and blood cultures pending. Rocephin 1g IV Day 05/10. (3) Altered mental status Qualifiers: Altered mental status type: somnolence Qualified Code(s): R40.0 - Somnolence Assessment/Plan: This could be multifactorial. Secondary to NSTEMI, UTI and patient's underlying dementia. Treating urinary tract infection with antibiotics. We will continue patient's medications for dementia. (4) Hypertension Assessment/Plan: Metoprolol tartrate and hydralazine ordered IV. Patient also has a Nitropaste patch in place. We will resume patient's oral medications: losartan and amlodipine when able to take po. (5) Dementia Assessment/Plan: On Aricept 10 mg p.o. every afternoon. On Namenda 100 mg p.o. twice daily. We will also continue patient's citalopram 30 mg p.o. daily. (6) GERD (gastroesophageal reflux disease) Assessment/Plan: Protonix 40 mg p.o. daily AC. (7) Depression Assessment/Plan: On citalopram 30 mg p.o. daily. (8) Overactive bladder Assessment/Plan: On Vesicare. - Current Meds Current Meds: Current Medications Generic Name Dose Route Start Last Admin Trade Name Freq PRN Reason Stop Dose Admin Amlodipine Besylate 2.5 mg 02/21/21 21:00 02/21/21 21:37 Amlodipine 5 Mg Tablet PO Not Given BID [place]OR Donepezil HCl 10 mg 02/21/21 21:00 02/21/21 21:37 Donepezil 5 Mg Tablet PO Not Given QPM COUNT INCLUDES THE [facility] Enoxaparin Sodium 70 mg 02/22/21 06:00 02/22/21 06:12 Enoxaparin 80 Mg/0.8 Ml Syringe SUBQ 70 mg BID [place] Administration Dextrose/Sodium Chloride 1,000 mls @ 75 mls/hr 02/21/21 17:00 02/22/21 06:13 D5.45ns IV 75 mls/hr .[id number] [place]OR Administration Memantine 10 mg 02/21/21 21:00 02/21/21 21:37 Memantine 5 Mg Tablet PO Not Given BID COUNT INCLUDES THE [facility] Metoprolol Tartrate 5 mg 02/21/21 17:00 02/22/21 06:20 Metoprolol 5 Mg/5 Ml Vial IVP 5 mg Q6HR [place]OR Administration Nitroglycerin 1 patch 02/21/21 19:40 02/21/21 20:39 Nitroglycerin 0.2 Mg/Hr Patch TOP Not Given DAILY [place]OR Pantoprazole Sodium 40 mg 02/22/21 07:00 02/22/21 06:12 Pantoprazole 40 Mg Vial IVP 40 mg QDAC SAL[facility]OR Administration Sodium Chloride 10 ml 02/21/21 17:00 02/22/21 00:42 Sodium Chloride Flush 0.9% 10 Ml Syringe IVP 10 ml 0100,0900,1700 [place]OR Administration - Lab Result Fish Bone Diagrams: 02/22/21 05:57 02/22/21 05:57 - Additional Planning My Orders: My Active Orders 02/21/21 14:52 Activity Orders [RC] Q2HR IO [RC] IOSHIFT Initiate Bowel Care Protocol [RC] .protocol Initiate Line Care Protocol [RC] QSHIFT Initiate Personal Care Protoco [RC] .protocol Oxygen Therapy [RC] .PRN Telemetry- [RC] Q4HR Vital Signs [RC] Q4HR Acetaminophen [Tylenol] 650 mg PO Q4HR PRN Ondansetron Inj [Zofran Inj] 4 mg IVP Q6HR PRN Sodium Chloride Flush 0.9% [Normal Saline Flush 0.9%] 10 ml IVP PRN PRN Code Status [OTHERS] Routine Condition of Patient [OTHERS] Routine DVT Prophylaxis [OTHERS] Routine 02/21/21 15:00 SCDs [RC] QSHIFT Evaluate and Treat OT [OT] Routine Evaluate and Treat PT [PT] Routine 02/21/21 Dinner Cardiac Diet [DIET] 02/21/21 16:35 hydrALAZINE INJ [Apresoline Inj] 10 mg IVP Q6H PRN 02/21/21 17:00 Dextrose 5%-0.45% NaCl [D5.45ns] 1,000 ml IV 75 mls/hr Metoprolol Inj [Lopressor Inj] 5 mg IVP Q6HR Sodium Chloride Flush 0.9% [Normal Saline Flush 0.9%] 10 ml IVP 0100,0900,1700 02/21/21 21:00 Donepezil [Aricept] 10 mg PO QPM Memantine [Namenda] 10 mg PO BID amLODIPine [Norvasc] 2.5 mg PO BID 02/22/21 06:00 Enoxaparin [Lovenox] 70 mg SUBQ BID 02/22/21 07:00 Pantoprazole [Protonix] 40 mg IVP QDAC 02/22/21 09:00 Aspirin Supp [Aspirin] 300 mg NJ DAILY Citalopram [CeleXA] 30 mg PO DAILY Losartan [Cozaar] 100 mg PO DAILY cefTRIAXone [Rocephin] 1 gm Sodium Chloride 0.9% Minibag [Normal Saline 0.9% Minibag] 100 ml IV DAILY 02/23/21 05:00 BMP - BASIC METABOLIC PANEL [CHEM] DAILYLAB CBC - COMP BLD CT W/AUTO DIFF [HEME] DAILYLAB 02/24/21 05:00 BMP - BASIC METABOLIC PANEL [CHEM] DAILYLAB CBC - COMP BLD CT W/AUTO DIFF [HEME] DAILYLAB 02/25/21 05:00 BMP - BASIC METABOLIC PANEL [CHEM] DAILYLAB CBC - COMP BLD CT W/AUTO DIFF [HEME] DAILYLAB 02/26/21 05:00 BMP - BASIC METABOLIC PANEL [CHEM] DAILYLAB CBC - COMP BLD CT W/AUTO DIFF [HEME] DAILYLAB 02/27/21 05:00 BMP - BASIC METABOLIC PANEL [CHEM] DAILYLAB CBC - COMP BLD CT W/AUTO DIFF [HEME] DAILYLAB 02/28/21 05:00 BMP - BASIC METABOLIC PANEL [CHEM] DAILYLAB CBC - COMP BLD CT W/AUTO DIFF [HEME] DAILYLAB Subjective - Subjective Patient Reports: Other (Patient continues to be unresponsive to verbal stimuli. However when her eyelids are passively/manually opened patient's gaze appears focused asleep she is awake. Subsequent attempts to manually open her eyelids result in active resistance to comply on her part.) Objective Vital Signs: Vital Signs - 24 hr 02/21/21 02/21/21 02/21/21 12:36 14:00 14:30 Temperature 37.7 C Heart Rate 75 73 81 Heart Rate [ Brachial] Respiratory 18 14 18 Rate Blood Pressure 147/89 H 157/68 H 164/125 H Blood Pressure [Left Brachial artery] Blood Pressure [Right Brachial artery] O2 Saturation 98 96 96 02/21/21 02/21/21 02/21/21 15:09 16:00 16:36 Temperature 36.9 C 36.9 C Heart Rate 83 Heart Rate [ 84 86 Brachial] Respiratory 19 20 19 Rate Blood Pressure 173/78 H Blood Pressure 212/75 H 212/75 H [Left Brachial artery] Blood Pressure [Right Brachial artery] O2 Saturation 97 93 96 02/21/21 02/21/21 02/21/21 18:18 18:21 18:27 Temperature Heart Rate Heart Rate [ 80 72 Brachial] Respiratory Rate Blood Pressure 143/39 H Blood Pressure 143/39 H 150/38 H [Left Brachial artery] Blood Pressure [Right Brachial artery] O2 Saturation 02/21/21 02/21/21 02/21/21 18:32 18:37 18:50 Temperature Heart Rate Heart Rate [ 73 74 73 Brachial] Respiratory Rate Blood Pressure Blood Pressure 148/39 H 144/38 H 142/38 H [Left Brachial artery] Blood Pressure [Right Brachial artery] O2 Saturation 02/21/21 02/21/21 02/21/21 19:05 19:20 22:25 Temperature 37.5 C Heart Rate Heart Rate [ 74 77 84 Brachial] Respiratory 15 Rate Blood Pressure Blood Pressure 144/43 H 143/43 H [Left Brachial artery] Blood Pressure 136/90 H [Right Brachial artery] O2 Saturation 93 02/22/21 02/22/21 02/22/21 00:22 00:42 05:00 Temperature 36.9 C 38 C H Heart Rate Heart Rate [ 80 76 Brachial] Respiratory 18 17 Rate Blood Pressure 152/64 H Blood Pressure [Left Brachial artery] Blood Pressure 152/64 H 146/42 H [Right Brachial artery] O2 Saturation 94 94 02/22/21 02/22/21 02/22/21 06:20 06:25 08:03 Temperature 37.7 C 37.1 C Heart Rate Heart Rate [ 76 Brachial] Respiratory 24 Rate Blood Pressure 153/52 H Blood Pressure [Left Brachial artery] Blood Pressure 160/59 H [Right Brachial artery] O2 Saturation 94 Oxygen O2 Source Room air I&O (Last 24 Hrs): Intake and Output Totals x24h 02/20/21 02/21/21 02/22/21 23:59 23:59 23:59 Intake Total 0 998.75 Output Total 500 300 Balance -500 698.75 General: No acute distress, Other (Unresponsive but appears awake. Uncooperative. 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 right hand with contracture) Skin: No rashes, No breakdown - Results Results: Laboratory Results WBC 6.7 x10^3/uL (4.8-10.8) 02/22/21 05:57 RBC 3.48 10^6/uL (4.20-5.40) L 02/22/21 05:57 Hgb 10.8 g/dL (12.0-16.0) L 02/22/21 05:57 Hct 33.4 % (37.0-47.0) L 02/22/21 05:57 MCV 96.0 fL (81.0-99.0) 02/22/21 05:57 MCH 31.0 pg (27.0-31.0) 02/22/21 05:57 MCHC 32.3 g/dL (32.0-36.0) 02/22/21 05:57 RDW 12.7 % (12.0-15.0) 02/22/21 05:57 Plt Count 197 10^3/uL (130-450) 02/22/21 05:57 MPV 9.2 fL (7.9-10.8) 02/22/21 05:57 Neut # (Auto) 4.9 10^3/uL (1.5-6.6) 02/22/21 05:57 Lymph # (Auto) 1.0 10^3/uL (1.5-3.5) L 02/22/21 05:57 [place] # (Auto) 0.7 10^3/uL (0.0-1.0) 02/22/21 05:57 Eos # (Auto) 0.1 10^3/uL (0.0-0.7) 02/22/21 05:57 Baso # (Auto) 0.1 10^3/uL (0.0-0.1) 02/22/21 05:57 Absolute Nucleated RBC 0.00 x10^3/uL 02/22/21 05:57 Nucleated RBC % 0.0 /100WBC 02/22/21 05:57 Sodium 137 mmol/L (135-145) 02/22/21 05:57 Potassium 3.5 mmol/L (3.5-5.0) 02/22/21 05:57 Chloride 101 mmol/L (101-111) 02/22/21 05:57 Carbon Dioxide 27 mmol/L (21-32) 02/22/21 05:57 Anion Gap 9.0 (6-13) 02/22/21 05:57 BUN 14 mg/dL (6-20) 02/22/21 05:57 Creatinine 0.9 mg/dL (0.4-1.0) 02/22/21 05:57 Estimated GFR (MDRD) 60 (>89) L 02/22/21 05:57 Glucose 135 mg/dL (70-100) H 02/22/21 05:57 Lactic Acid 0.8 mmol/L (0.5-2.2) 02/21/21 13:51 Calcium 8.5 mg/dL (8.5-10.3) 02/22/21 05:57 Total Bilirubin 0.8 mg/dL (0.2-1.0) 02/21/21 13:08 AST 27 IU/L (10-42) 02/21/21 13:08 ALT 19 IU/L (10-60) 02/21/21 13:08 Alkaline Phosphatase 64 IU/L (42-121) 02/21/21 13:08 Troponin I High Sens 1988.7 ng/L (2.3-14.8) H* 02/22/21 05:57 B-Natriuretic Peptide 1112 pg/mL (5-100) H 02/22/21 05:57 Total Protein 6.6 g/dL (6.7-8.2) L 02/21/21 13:08 Albumin 3.6 g/dL (3.2-5.5) 02/21/21 13:08 Globulin 3.0 g/dL (2.1-4.2) 02/21/21 13:08 Albumin/Globulin Ratio 1.2 (1.0-2.2) 02/21/21 13:08 Lipase 19 U/L (22-51) L 02/21/21 13:08 TSH 3.53 uIU/mL (0.34-5.60) 02/21/21 13:08 Urine Color YELLOW 02/21/21 13:36 Urine Clarity CLOUDY (CLEAR) 02/21/21 13:36 Urine pH 7.5 PH (5.0-7.5) 02/21/21 13:36 Ur Specific [place] 1.020 (1.002-1.030) 02/21/21 13:36 Urine Protein 30 mg/dL (NEGATIVE) H 02/21/21 13:36 Urine Glucose (UA) NEGATIVE mg/dL (NEGATIVE) 02/21/21 13:36 Urine Ketones NEGATIVE mg/dL (NEGATIVE) 02/21/21 13:36 Urine Occult Blood MODERATE (NEGATIVE) H 02/21/21 13:36 Urine Nitrite NEGATIVE (NEGATIVE) 02/21/21 13:36 Urine Bilirubin NEGATIVE (NEGATIVE) 02/21/21 13:36 Urine Urobilinogen 0.2 (NORMAL) E.U./dL (NORMAL) 02/21/21 13:36 Ur Leukocyte Esterase MODERATE (NEGATIVE) H 02/21/21 13:36 Urine RBC 0-5 /HPF (0-5) 02/21/21 13:36 Urine WBC >25 /HPF (0-5) H 02/21/21 13:36 Ur Squamous Epith Cells FEW Squamous (<= Few) 02/21/21 13:36 Urine Bacteria Many /HPF (None Seen) H 02/21/21 13:36 Ur Microscopic Review INDICATED 02/21/21 13:36 Urine Culture Comments INDICATED 02/21/21 13:36 Nasal Adenovirus (PCR) NOT DETECTED 02/21/21 13:46 Nasal B. parapertussis DNA (PCR) NOT DETECTED 02/21/21 13:46 Nasal Coronavir 229E PCR NOT DETECTED 02/21/21 13:46 Nasal Coronavir HKU1 PCR NOT DETECTED 02/21/21 13:46 Nasal Coronavir NL63 PCR NOT DETECTED 02/21/21 13:46 Nasal Coronavir OC43 PCR NOT DETECTED 02/21/21 13:46 Nasal Enterovir/Rhinovir PCR NOT DETECTED 02/21/21 13:46 Nasal Influenza B PCR NOT DETECTED 02/21/21 13:46 Nasal Influenza A PCR NOT DETECTED 02/21/21 13:46 Nasal Parainfluen 1 PCR NOT DETECTED 02/21/21 13:46 Nasal Parainfluen 2 PCR NOT DETECTED 02/21/21 13:46 Nasal Parainfluen 3 PCR NOT DETECTED 02/21/21 13:46 Nasal Parainfluen 4 PCR NOT DETECTED 02/21/21 13:46 Nasal RSV (PCR) NOT DETECTED 02/21/21 13:46 Nasal B.pertussis DNA PCR NOT DETECTED 02/21/21 13:46 Nasal C.pneumoniae (PCR) NOT DETECTED 02/21/21 13:46 [place] Human Metapneumo PCR NOT DETECTED 02/21/21 13:46 Nasal M.pneumoniae (PCR) NOT DETECTED 02/21/21 13:46 Nasal SARS-CoV-2 (PCR) NOT DETECTED 02/21/21 13:46 Salicylates < 6.0 mg/dL 02/21/21 13:08 Urine Opiates Screen NEGATIVE (NEGATIVE) 02/21/21 13:36 Ur Oxycodone Screen NEGATIVE (NEGATIVE) 02/21/21 13:36 Urine Methadone Screen NEGATIVE (NEGATIVE) 02/21/21 13:36 Ur Propoxyphene Screen NEGATIVE (NEGATIVE) 02/21/21 13:36 Acetaminophen < 10 ug/mL (10-30) L 02/21/21 13:08 Ur Barbiturates Screen NEGATIVE (NEGATIVE) 02/21/21 13:36 Ur Tricyclics Screen NEGATIVE (NEGATIVE) 02/21/21 13:36 Ur Phencyclidine Scrn NEGATIVE (NEGATIVE) 02/21/21 13:36 Ur Amphetamine Screen NEGATIVE (NEGATIVE) 02/21/21 13:36 U Methamphetamines Scrn NEGATIVE (NEGATIVE) 02/21/21 13:36 U Benzodiazepines Scrn NEGATIVE (NEGATIVE) 02/21/21 13:36 Urine Cocaine Screen NEGATIVE (NEGATIVE) 02/21/21 13:36 U Cannabinoids Screen NEGATIVE (NEGATIVE) 02/21/21 13:36 Ethyl Alcohol < 5.0 mg/dL 02/21/21 13:08 ABX Reporting Has patient been on IV antibiotics over the past 48 hours?: Yes
[2021-02-22] MEDS ORDERED: ASPIRIN EC 81 MG TABLET PO SCH (09:00)
[2021-02-22] MEDS: cefTRIAXone 1 GM in SODIUM CHLORIDE 0.9% MINIBAG 100 ML IV SCH (09:27)
[2021-02-22] MEDS: SODIUM CHLORIDE FLUSH 0.9% 10 ML SYRINGE IVP PRN ×3 (09:28→12:33)
[2021-02-22] MEDS: ASPIRIN 300 MG SUPP PR SCH (09:28)
[2021-02-22] MEDS: NITROGLYCERIN 0.2 MG/HR PATCH TOP SCH (09:29)
[2021-02-22] MEDS: amLODIPine 5 MG TABLET PO SCH ×2 (10:28→20:52)
[2021-02-22] MEDS: CITALOPRAM 10 MG TABLET PO SCH (10:28)
[2021-02-22] MEDS: LOSARTAN 50 MG TABLET PO SCH (10:28)
[2021-02-22] MEDS: MEMANTINE 5 MG TABLET PO SCH ×2 (10:29→20:52)
[2021-02-22] MEDS: ZINC OXIDE 20% OINT 30 GM TUBE TOP PRN (14:00)
[2021-02-22] MEDS: DONEPEZIL 5 MG TABLET PO SCH (20:52)
[2021-02-23] MEDS: METOPROLOL 5 MG/5 ML VIAL IVP SCH ×6 (00:02→20:17)
[2021-02-23] MEDS: SODIUM CHLORIDE FLUSH 0.9% 10 ML SYRINGE IVP SCH ×4 (00:07→23:27)
[2021-02-23] MEDS: PANTOPRAZOLE 40 MG VIAL IVP SCH (05:49)
[2021-02-23 06:00] LABS: BASOPHILS % (AUTO) 0.7 %; EOSINOPHILS # (AUTO) 0.1 10^3/uL (0.0-0.7); EOSINOPHILS % (AUTO) 1.6 %; HCT - HEMATOCRIT 34.1 % (37.0-47.0); HGB - HEMOGLOBIN 10.8 g/dL (12.0-16.0); MEAN CORPUSCULAR HEMOGLOBIN 30.2 pg (27.0-31.0); MEAN CORPUSCULAR HGB CONC 31.7 g/dL (32.0-36.0); MEAN CORPUSCULAR VOLUME 95.3 fL (81.0-99.0); MEAN PLATELET VOLUME 9.2 fL (7.9-10.8); MONOCYTES # (AUTO) 0.6 10^3/uL (0.0-1.0); MONOCYTES % (AUTO) 10.4 %; PLT - PLATELET COUNT 186 10^3/uL (130-450); RED BLOOD COUNT 3.58 10^6/uL (4.20-5.40); RED CELL DISTRIBUTION WIDTH 12.7 % (12.0-15.0); WHITE BLOOD COUNT 5.8 x10^3/uL (4.8-10.8)
[2021-02-23 06:18] LABS: CALCIUM 8.4 mg/dL (8.5-10.3); CREATININE 0.7 mg/dL (0.4-1.0); POTASSIUM 3.1 mmol/L (3.5-5.0)
--- NOTE | 2021-02-23 07:34 | PROVIDER PROGRESS NOTE ---
Assessment/Plan - Problem List (1) NSTEMI (non-ST elevated myocardial infarction) Assessment/Plan: 02/22/21 Troponin levels trended down to 1196. Lovenox has been discontinued. Continuing aspirin 300 mg SC. Metoprolol tartrate 5 mg IV every 4 hours scheduled. Nitropatch 0.2 mg daily but taken off at 11 PM every day. 2D echocardiogram ordered for tomorrow 02/24/2021. I reiterated to the patient's who was at bedside that if there was not any change in her clinical status, I would recommend consulting hospice care. By tomorrow 02/24/2021 patient will be going on 3 days without ingesting anythin g orally. I highlighted to the patient's that this is not sustainable in the long-term and will lead to patient's demise. He expressed understanding. 02/22/21 Troponin continues to trend upwards from 1445.2 then 1862.2 then 1933 then 1988.7 and 2010.0. Wiil continue to trend Will discontinue Lovenox when troponin levels starts trending down. Continue aspirin 300 mg SC. Metoprolol tartrate 5 mg IV every 6 hours scheduled. Nitropatch 0.2 mg daily but taken off at 11 PM every day. 2D echocardiogram on Wednesday. If no clinical improvement by 02/24/2021 we will discuss goals of care with the patient's . This would include the possibility of hospice. (2) UTI (urinary tract infection) Qualifiers: Urinary tract infection type: acute cystitis Hematuria presence: without hematuria Qualified Code(s): N30.00 - Acute cystitis without hematuria Assessment/Plan: Urine and blood cultures pending. Rocephin 1g IV Day 3. (3) Altered mental status Qualifiers: Altered mental status type: somnolence Qualified Code(s): R40.0 - Somnolence Assessment/Plan: This could be multifactorial. Secondary to NSTEMI, UTI and patient's underlying dementia. Treating urinary tract infection with antibiotics. We will continue patient's medications for dementia. (4) Hypertension Assessment/Plan: Metoprolol tartrate and hydralazine ordered IV. Patient also has a Nitropatch in place. We will resume patient's oral medications: losartan and amlodipine when able to take po. (5) Dementia Assessment/Plan: On Aricept 10 mg p.o. every afternoon. On Namenda 100 mg p.o. twice daily. We will also continue patient's citalopram 30 mg p.o. daily. (6) GERD (gastroesophageal reflux disease) Assessment/Plan: Protonix 40 mg p.o. daily AC. (7) Depression Assessment/Plan: On citalopram 30 mg p.o. daily. (8) Overactive bladder Assessment/Plan: On Vesicare. - Current Meds Current Meds: Current Medications Generic Name Dose Route Start Last Admin Trade Name Freq PRN Reason Stop Dose Admin Amlodipine Besylate 2.5 mg 02/21/21 21:00 02/22/21 20:52 Amlodipine 5 Mg Tablet PO Not Given BID [facility]OR Aspirin 300 mg 02/22/21 09:00 02/22/21 09:28 Aspirin 300 Mg Supp SC 300 mg DAILY SAL[facility]OR Administration Citalopram Hydrobromide 30 mg 02/22/21 09:00 02/22/21 10:28 Citalopram 10 Mg Tablet PO Not Given DAILY [facility] Donepezil HCl 10 mg 02/21/21 21:00 02/22/21 20:52 Donepezil 5 Mg Tablet PO Not Given QPM [facility]OR Ceftriaxone Sodium 1 gm/ 100 mls @ 200 mls/hr 02/22/21 09:00 02/22/21 10:00 Sodium Chloride IV 02/26/21 08:59 Infused DAILY [facility] Infusion Dextrose/Sodium Chloride 1,000 mls @ 75 mls/hr 02/21/21 17:00 02/22/21 20:51 D5.45ns IV 75 mls/hr .[id number] [facility] Administration Losartan Potassium 100 mg 02/22/21 09:00 02/22/21 10:28 Losartan 50 Mg Tablet PO Not Given DAILY [facility] Memantine 10 mg 02/21/21 21:00 02/22/21 20:52 Memantine 5 Mg Tablet PO Not Given BID [facility]OR Multi-Ingredient Ointment 1 applic 02/22/21 12:38 02/22/21 14:00 Zinc Oxide 20% Oint 30 Gm Tube TOP 1 applic PRN PRN Administration Skin Care Nitroglycerin 1 patch 02/21/21 19:40 02/22/21 09:29 Nitroglycerin 0.2 Mg/Hr Patch TOP 1 patch DAILY [facility] Administration Pantoprazole Sodium 40 mg 02/22/21 07:00 02/23/21 05:49 Pantoprazole 40 Mg Vial IVP 40 mg QDAC [facility] Administration Sodium Chloride 10 ml 02/21/21 14:52 02/22/21 12:33 Sodium Chloride Flush 0.9% 10 Ml Syringe IVP 10 ml PRN PRN Administration NEEDED PER PROVIDER ORDERS Sodium Chloride 10 ml 02/21/21 17:00 02/23/21 00:07 Sodium Chloride Flush 0.9% 10 Ml Syringe IVP 10 ml 0100,0900,1700 [facility] Administration - Lab Result Fish Bone Diagrams: 02/23/21 05:17 02/23/21 05:17 - Additional Planning My Orders: My Active Orders 02/22/21 07:00 Pantoprazole [Protonix] 40 mg IVP QDAC 02/22/21 09:00 Aspirin Supp [Aspirin] 300 mg SC DAILY Citalopram [CeleXA] 30 mg PO DAILY Losartan [Cozaar] 100 mg PO DAILY cefTRIAXone [Rocephin] 1 gm Sodium Chloride 0.9% Minibag [Normal Saline 0.9% Minibag] 100 ml IV DAILY 02/22/21 12:38 Zinc Oxide 20% Oint [Zinc Oxide] 1 applic TOP PRN PRN 02/23/21 08:00 Potassium Chloride/Water 10 mEq/100 mL q1h (Enter # of bags) Potassium Chlor 10 Meq/100 ml [Potassium Chloride] 10 meq in 100 ml IV Q1H 02/23/21 09:00 Metoprolol Inj [Lopressor Inj] 5 mg IVP Q4HR 02/24/21 05:00 BMP - BASIC METABOLIC PANEL [CHEM] DAILYLAB CBC - COMP BLD CT W/AUTO DIFF [HEME] DAILYLAB 02/25/21 05:00 BMP - BASIC METABOLIC PANEL [CHEM] DAILYLAB CBC - COMP BLD CT W/AUTO DIFF [HEME] DAILYLAB 02/26/21 05:00 BMP - BASIC METABOLIC PANEL [CHEM] DAILYLAB CBC - COMP BLD CT W/AUTO DIFF [HEME] DAILYLAB 02/27/21 05:00 BMP - BASIC METABOLIC PANEL [CHEM] DAILYLAB CBC - COMP BLD CT W/AUTO DIFF [HEME] DAILYLAB 02/28/21 05:00 BMP - BASIC METABOLIC PANEL [CHEM] DAILYLAB CBC - COMP BLD CT W/AUTO DIFF [HEME] DAILYLAB Subjective - Subjective Patient Reports: Other (Patient continues to be unresponsive to tactile/ verbal stimuli. She has not ingested anything by mouth since admission.) Objective Vital Signs: Vital Signs - 24 hr 02/22/21 02/22/21 02/22/21 08:03 08:40 12:27 Temperature 37.1 C 37.5 C Heart Rate [ 76 Brachial] Heart Rate [ 78 Monitoring electrodes] Respiratory 24 20 Rate Blood Pressure Blood Pressure [Left Brachial artery] Blood Pressure 160/59 H 145/52 H 138/53 H [Right Brachial artery] O2 Saturation 94 93 02/22/21 02/22/21 02/22/21 12:33 12:47 16:00 Temperature 37.3 C Heart Rate [ Brachial] Heart Rate [ 83 Monitoring electrodes] Respiratory 18 Rate Blood Pressure 138/53 H Blood Pressure [Left Brachial artery] Blood Pressure 153/42 H 146/53 H [Right Brachial artery] O2 Saturation 93 02/22/21 02/22/21 02/22/21 17:52 21:00 22:08 Temperature 38 C H 37 C Heart Rate [ 84 Brachial] Heart Rate [ Monitoring electrodes] Respiratory 22 Rate Blood Pressure 156/89 H Blood Pressure 145/57 H [Left Brachial artery] Blood Pressure [Right Brachial artery] O2 Saturation 93 02/22/21 02/23/21 02/23/21 23:48 00:02 05:19 Temperature 37.7 C 38 C H Heart Rate [ 88 Brachial] Heart Rate [ 82 Monitoring electrodes] Respiratory 19 20 Rate Blood Pressure 167/56 H Blood Pressure [Left Brachial artery] Blood Pressure 167/56 H 159/90 H [Right Brachial artery] O2 Saturation 94 94 02/23/21 02/23/21 05:44 05:57 Temperature 36.7 C Heart Rate [ Brachial] Heart Rate [ Monitoring electrodes] Respiratory Rate Blood Pressure 159/90 H Blood Pressure [Left Brachial artery] Blood Pressure [Right Brachial artery] O2 Saturation Oxygen O2 Source Room air I&O (Last 24 Hrs): Intake and Output Totals x24h 02/21/21 02/22/21 02/23/21 23:59 23:59 23:59 Intake Total 0 2098.75 0 Output Total 500 750 200 Balance -500 1348.75 -200 Comments/Notes: General: No acute distress, Other (Unresponsive but appears awake. Uncooperative. 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 right hand with contracture) Skin: No rashes, No breakdown - Results Results: Laboratory Results WBC 5.8 x10^3/uL (4.8-10.8) 02/23/21 05:17 RBC 3.58 10^6/uL (4.20-5.40) L 02/23/21 05:17 Hgb 10.8 g/dL (12.0-16.0) L 02/23/21 05:17 Hct 34.1 % (37.0-47.0) L 02/23/21 05:17 MCV 95.3 fL (81.0-99.0) 02/23/21 05:17 MCH 30.2 pg (27.0-31.0) 02/23/21 05:17 MCHC 31.7 g/dL (32.0-36.0) L 02/23/21 05:17 RDW 12.7 % (12.0-15.0) 02/23/21 05:17 Plt Count 186 10^3/uL (130-450) 02/23/21 05:17 MPV 9.2 fL (7.9-10.8) 02/23/21 05:17 Neut # (Auto) 4.0 10^3/uL (1.5-6.6) 02/23/21 05:17 Lymph # (Auto) 1.0 10^3/uL (1.5-3.5) L 02/23/21 05:17 [place] # (Auto) 0.6 10^3/uL (0.0-1.0) 02/23/21 05:17 Eos # (Auto) 0.1 10^3/uL (0.0-0.7) 02/23/21 05:17 Baso # (Auto) 0.0 10^3/uL (0.0-0.1) 02/23/21 05:17 Absolute Nucleated RBC 0.00 x10^3/uL 02/23/21 05:17 Nucleated RBC % 0.0 /100WBC 02/23/21 05:17 Sodium 134 mmol/L (135-145) L 02/23/21 05:17 Potassium 3.1 mmol/L (3.5-5.0) L 02/23/21 05:17 Chloride 101 mmol/L (101-111) 02/23/21 05:17 Carbon Dioxide 24 mmol/L (21-32) 02/23/21 05:17 Anion Gap 9.0 (6-13) 02/23/21 05:17 BUN 11 mg/dL (6-20) 02/23/21 05:17 Creatinine 0.7 mg/dL (0.4-1.0) 02/23/21 05:17 Estimated GFR (MDRD) 80 (>89) L 02/23/21 05:17 Glucose 136 mg/dL (70-100) H 02/23/21 05:17 Lactic Acid 0.8 mmol/L (0.5-2.2) 02/21/21 13:51 Calcium 8.4 mg/dL (8.5-10.3) L 02/23/21 05:17 Total Bilirubin 0.8 mg/dL (0.2-1.0) 02/21/21 13:08 AST 27 IU/L (10-42) 02/21/21 13:08 ALT 19 IU/L (10-60) 02/21/21 13:08 Alkaline Phosphatase 64 IU/L (42-121) 02/21/21 13:08 Troponin I High Sens 1196.0 ng/L (2.3-14.8) H* 02/23/21 06:38 B-Natriuretic Peptide 1112 pg/mL (5-100) H 02/22/21 05:57 Total Protein 6.6 g/dL (6.7-8.2) L 02/21/21 13:08 Albumin 3.6 g/dL (3.2-5.5) 02/21/21 13:08 Globulin 3.0 g/dL (2.1-4.2) 02/21/21 13:08 Albumin/Globulin Ratio 1.2 (1.0-2.2) 02/21/21 13:08 Lipase 19 U/L (22-51) L 02/21/21 13:08 TSH 3.53 uIU/mL (0.34-5.60) 02/21/21 13:08 Urine Color YELLOW 02/21/21 13:36 Urine Clarity CLOUDY (CLEAR) 02/21/21 13:36 Urine pH 7.5 PH (5.0-7.5) 02/21/21 13:36 Ur Specific Severance 1.020 (1.002-1.030) 02/21/21 13:36 Urine Protein 30 mg/dL (NEGATIVE) H 02/21/21 13:36 Urine Glucose (UA) NEGATIVE mg/dL (NEGATIVE) 02/21/21 13:36 Urine Ketones NEGATIVE mg/dL (NEGATIVE) 02/21/21 13:36 Urine Occult Blood MODERATE (NEGATIVE) H 02/21/21 13:36 Urine Nitrite NEGATIVE (NEGATIVE) 02/21/21 13:36 Urine Bilirubin NEGATIVE (NEGATIVE) 02/21/21 13:36 Urine Urobilinogen 0.2 (NORMAL) E.U./dL (NORMAL) 02/21/21 13:36 Ur Leukocyte Esterase MODERATE (NEGATIVE) H 02/21/21 13:36 Urine RBC 0-5 /HPF (0-5) 02/21/21 13:36 Urine WBC >25 /HPF (0-5) H 02/21/21 13:36 Ur Squamous Epith Cells FEW Squamous (<= Few) 02/21/21 13:36 Urine Bacteria Many /HPF (None Seen) H 02/21/21 13:36 Ur Microscopic Review INDICATED 02/21/21 13:36 Urine Culture Comments INDICATED 02/21/21 13:36 Nasal Adenovirus (PCR) NOT DETECTED 02/21/21 13:46 Nasal B. parapertussis DNA (PCR) NOT DETECTED 02/21/21 13:46 Nasal Coronavir 229E PCR NOT DETECTED 02/21/21 13:46 Nasal Coronavir HKU1 PCR NOT DETECTED 02/21/21 13:46 Nasal Coronavir NL63 PCR NOT DETECTED 02/21/21 13:46 Nasal Coronavir OC43 PCR NOT DETECTED 02/21/21 13:46 Nasal Enterovir/Rhinovir PCR NOT DETECTED 02/21/21 13:46 Nasal Influenza B PCR NOT DETECTED 02/21/21 13:46 Nasal Influenza A PCR NOT DETECTED 02/21/21 13:46 Nasal Parainfluen 1 PCR NOT DETECTED 02/21/21 13:46 Nasal Parainfluen 2 PCR NOT DETECTED 02/21/21 13:46 Nasal Parainfluen 3 PCR NOT DETECTED 02/21/21 13:46 Nasal Parainfluen 4 PCR NOT DETECTED 02/21/21 13:46 Nasal RSV (PCR) NOT DETECTED 02/21/21 13:46 Nasal B.pertussis DNA PCR NOT DETECTED 02/21/21 13:46 Nasal C.pneumoniae (PCR) NOT DETECTED 02/21/21 13:46 George Human Metapneumo PCR NOT DETECTED 02/21/21 13:46 Nasal M.pneumoniae (PCR) NOT DETECTED 02/21/21 13:46 Nasal SARS-CoV-2 (PCR) NOT DETECTED 02/21/21 13:46 Salicylates < 6.0 mg/dL 02/21/21 13:08 Urine Opiates Screen NEGATIVE (NEGATIVE) 02/21/21 13:36 Ur Oxycodone Screen NEGATIVE (NEGATIVE) 02/21/21 13:36 Urine Methadone Screen NEGATIVE (NEGATIVE) 02/21/21 13:36 Ur Propoxyphene Screen NEGATIVE (NEGATIVE) 02/21/21 13:36 Acetaminophen < 10 ug/mL (10-30) L 02/21/21 13:08 Ur Barbiturates Screen NEGATIVE (NEGATIVE) 02/21/21 13:36 Ur Tricyclics Screen NEGATIVE (NEGATIVE) 02/21/21 13:36 Ur Phencyclidine Scrn NEGATIVE (NEGATIVE) 02/21/21 13:36 Ur Amphetamine Screen NEGATIVE (NEGATIVE) 02/21/21 13:36 U Methamphetamines Scrn NEGATIVE (NEGATIVE) 02/21/21 13:36 U Benzodiazepines Scrn NEGATIVE (NEGATIVE) 02/21/21 13:36 Urine Cocaine Screen NEGATIVE (NEGATIVE) 02/21/21 13:36 U Cannabinoids Screen NEGATIVE (NEGATIVE) 02/21/21 13:36 Ethyl Alcohol < 5.0 mg/dL 02/21/21 13:08 ABX Reporting Has patient been on IV antibiotics over the past 48 hours?: Yes
[2021-02-23] MEDS: cefTRIAXone 1 GM in SODIUM CHLORIDE 0.9% MINIBAG 100 ML IV SCH (09:15)
[2021-02-23] MEDS: ASPIRIN 300 MG SUPP PR SCH (09:15)
[2021-02-23] MEDS: NITROGLYCERIN 0.2 MG/HR PATCH TOP SCH (09:15)
[2021-02-23] MEDS: amLODIPine 5 MG TABLET PO SCH ×2 (09:23→20:20)
[2021-02-23] MEDS: CITALOPRAM 10 MG TABLET PO SCH (09:23)
[2021-02-23] MEDS: LOSARTAN 50 MG TABLET PO SCH (09:23)
[2021-02-23] MEDS: MEMANTINE 5 MG TABLET PO SCH ×2 (09:24→20:20)
[2021-02-23] MEDS: ZINC OXIDE 20% OINT 30 GM TUBE TOP PRN (09:31)
[2021-02-23] MEDS: POTASSIUM CHLOR 10 MEQ/100 ML 10 MEQ/100 ML BAG IV SCH ×4 (10:34→13:29)
[2021-02-23] MEDS: DEXTROSE 5%-0.45% NACL 1,000 ML IV SCH ×2 (12:10→22:32)
[2021-02-23] MEDS: SODIUM CHLORIDE FLUSH 0.9% 10 ML SYRINGE IVP PRN (20:18)
[2021-02-23] MEDS: DONEPEZIL 5 MG TABLET PO SCH (20:20)
[2021-02-24] MEDS: METOPROLOL 5 MG/5 ML VIAL IVP SCH ×6 (00:03→20:51)
[2021-02-24] MEDS: PANTOPRAZOLE 40 MG VIAL IVP SCH (05:45)
[2021-02-24 06:11] LABS: BASOPHILS % (AUTO) 0.5 %; EOSINOPHILS # (AUTO) 0.1 10^3/uL (0.0-0.7); EOSINOPHILS % (AUTO) 0.6 %; HGB - HEMOGLOBIN 10.7 g/dL (12.0-16.0); LYMPHOCYTES # (AUTO) 1.1 10^3/uL (1.5-3.5); LYMPHOCYTES % (AUTO) 13.9 %; MEAN CORPUSCULAR HEMOGLOBIN 30.5 pg (27.0-31.0); MEAN CORPUSCULAR HGB CONC 32.4 g/dL (32.0-36.0); MEAN PLATELET VOLUME 9.4 fL (7.9-10.8); MONOCYTES # (AUTO) 0.7 10^3/uL (0.0-1.0); MONOCYTES % (AUTO) 9.1 %; NEUTROPHILS # (AUTO) 5.9 10^3/uL (1.5-6.6); PLT - PLATELET COUNT 197 10^3/uL (130-450); RED BLOOD COUNT 3.51 10^6/uL (4.20-5.40); RED CELL DISTRIBUTION WIDTH 12.6 % (12.0-15.0); WHITE BLOOD COUNT 7.8 x10^3/uL (4.8-10.8)
[2021-02-24 06:21] LABS: CALCIUM 8.6 mg/dL (8.5-10.3); CREATININE 0.6 mg/dL (0.4-1.0); POTASSIUM 3.3 mmol/L (3.5-5.0)
--- NOTE | 2021-02-24 07:33 | PROVIDER PROGRESS NOTE ---
Assessment/Plan - Problem List (1) NSTEMI (non-ST elevated myocardial infarction) Assessment/Plan: 02/24/21 2D echocardiogram done today 02/24/2021 showed ejection fraction of 70 to 75%. There is severe concentric left ventricular hypertrophy. Showed severe aortic stenosis with peak/mean pressure gradient of 91 mmHg over 61 mmHg. 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 I brought up the topic of hospice. Patient's stated he has sensed that thing may be headed in that direction. He is leaning towards hospice care but wishes to discuss it with the rest of the family. Feedback to follow on 02/25/21. Nitropatch discontinued Continue metoprolol 02/23/21 Troponin levels trended down to 1196. Lovenox has been discontinued. Continuing aspirin 300 mg CO. Metoprolol tartrate 5 mg IV every 4 hours scheduled. Nitropatch 0.2 mg daily but taken off at 11 PM every day. 2D echocardiogram ordered for tomorrow 02/24/2021. I reiterated to the patient's who was at bedside that if there was not any change in her clinical status, I would recommend consulting hospice care. By tomorrow 02/24/2021 patient will be going on 3 days without ingesting anything orally. I highlighted to the patient's that this is not s ustainable in the long-term and will lead to patient's demise. He expressed understanding. 02/22/21 Troponin continues to trend upwards from 1445.2 then 1862.2 then 1933 then 1988.7 and 2010.0. Wiil continue to trend Will discontinue Lovenox when troponin levels starts trending down. Continue aspirin 300 mg CO. Metoprolol tartrate 5 mg IV every 6 hours scheduled. Nitropatch 0.2 mg daily but taken off at 11 PM every day. 2D echocardiogram on Wednesday. If no clinical improvement by 02/24/2021 we will discuss goals of care with the patient's . This would include the possibility of hospice. (2) Severe Aortic Stenosis 2D echocardiogram done today 02/24/2021 showed ejection fraction of 70 to 75%. There is severe concentric left ventricular hypertrophy. Showed severe aortic stenosis with peak/mean pressure gradient of 91 mmHg over 61 mmHg. 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 I brought up the topic of hospice. Patient's stated he has sensed that thing may be headed in that direction. He is leaning towards hospice care but wishes to discuss it with the rest of the family. Feedback to follow on 02/25/21. (3)UTI (urinary tract infection) Qualifiers: Urinary tract infection type: acute cystitis Hematuria presence: without hematuria Qualified Code(s): N30.00 - Acute cystitis without hematuria Assessment/Plan: Urine and blood cultures pending. Rocephin 1g IV Day 3/5. (4) Altered mental status Qualifiers: Altered mental status type: somnolence Qualified Code(s): R40.0 - Somnolence Assessment/Plan: This could be multifactorial. Secondary to NSTEMI, UTI and patient's underlying dementia. Treating urinary tract infection with antibiotics. We will continue patient's medications for dementia. (5) Hypertension Assessment/Plan: Metoprolol tartrate and hydralazine ordered IV. Patient also has a Nitropatch in place. We will resume patient's oral medications: losartan and amlodipine when able to take po. (6) Dementia Assessment/Plan: On Aricept 10 mg p.o. every afternoon. On Namenda 100 mg p.o. twice daily. We will also continue patient's citalopram 30 mg p.o. daily. (7) GERD (gastroesophageal reflux disease) Assessment/Plan: Protonix 40 mg p.o. daily AC. (8) Depression Assessment/Plan: On citalopram 30 mg p.o. daily. (9) Overactive bladder Assessment/Plan: On Vesicare. (2) UTI (urinary tract infection) Qualifiers: Urinary tract infection type: acute cystitis Hematuria presence: without hematuria Qualified Code(s): N30.00 - Acute cystitis without hematuria (3) Altered mental status Qualifiers: Altered mental status type: somnolence Qualified Code(s): R40.0 - Somnolence - Current Meds Current Meds: Current Medications Generic Name Dose Route Start Last Admin Trade Name Freq PRN Reason Stop Dose Admin Amlodipine Besylate 2.5 mg 02/21/21 21:00 02/23/21 20:20 Amlodipine 5 Mg Tablet PO Not Given BID [facility] Aspirin 300 mg 02/22/21 09:00 02/23/21 09:15 Aspirin 300 Mg Supp CO 300 mg DAILY [facility] Administration Citalopram Hydrobromide 30 mg 02/22/21 09:00 02/23/21 09:23 Citalopram 10 Mg Tablet PO Not Given DAILY [facility] Donepezil HCl 10 mg 02/21/21 21:00 02/23/21 20:20 Donepezil 5 Mg Tablet PO Not Given QPM [facility] Hydralazine HCl 10 mg 02/21/21 16:35 02/24/21 05:15 Hydralazine Inj 20 Mg/Ml Vial IVP 10 mg Q6H PRN Administration PER PHYSICIAN ORDER Ceftriaxone Sodium 1 gm/ 100 mls @ 200 mls/hr 02/22/21 09:00 02/23/21 09:50 Sodium Chloride IV 02/26/21 08:59 Infused DAILY [facility] Infusion Dextrose/Sodium Chloride 1,000 mls @ 75 mls/hr 02/21/21 17:00 02/23/21 22:32 D5.45ns IV 75 mls/hr .[id number] [facility] Administration Losartan Potassium 100 mg 02/22/21 09:00 02/23/21 09:23 Losartan 50 Mg Tablet PO Not Given DAILY [facility] Memantine 10 mg 02/21/21 21:00 02/23/21 20:20 Memantine 5 Mg Tablet PO Not Given BID [facility] Metoprolol Tartrate 5 mg 02/23/21 09:00 02/24/21 04:24 Metoprolol 5 Mg/5 Ml Vial IVP 5 mg Q4HR [facility] Administration Multi-Ingredient Ointment 1 applic 02/22/21 12:38 02/23/21 09:31 Zinc Oxide 20% Oint 30 Gm Tube TOP 1 applic PRN PRN Administration Skin Care Nitroglycerin 1 patch 02/21/21 19:40 02/23/21 09:15 Nitroglycerin 0.2 Mg/Hr Patch TOP 1 patch DAILY [facility] Administration Pantoprazole Sodium 40 mg 02/22/21 07:00 02/24/21 05:45 Pantoprazole 40 Mg Vial IVP 40 mg QDAC [facility] Administration Sodium Chloride 10 ml 02/21/21 14:52 02/23/21 20:18 Sodium Chloride Flush 0.9% 10 Ml Syringe IVP 10 ml PRN PRN Administration NEEDED PER PROVIDER ORDERS Sodium Chloride 10 ml 02/21/21 17:00 02/23/21 23:27 Sodium Chloride Flush 0.9% 10 Ml Syringe IVP 10 ml 0100,0900,1700 [facility] Administration - Lab Result Fish Bone Diagrams: 02/24/21 05:47 02/24/21 05:47 - Additional Planning My Orders: My Active Orders 02/23/21 09:00 Metoprolol Inj [Lopressor Inj] 5 mg IVP Q4HR 02/24/21 08:00 Potassium Chloride/Water 10 mEq/100 mL q1h (Enter # of bags) Potassium Chlor 10 Meq/100 ml [Potassium Chloride] 10 meq in 100 ml IV Q1H 02/24/21 09:00 Echo Transthoracic Complete [ECHO] Routine 02/25/21 05:00 BMP - BASIC METABOLIC PANEL [CHEM] DAILYLAB CBC - COMP BLD CT W/AUTO DIFF [HEME] DAILYLAB 02/26/21 05:00 BMP - BASIC METABOLIC PANEL [CHEM] DAILYLAB CBC - COMP BLD CT W/AUTO DIFF [HEME] DAILYLAB 02/27/21 05:00 BMP - BASIC METABOLIC PANEL [CHEM] DAILYLAB CBC - COMP BLD CT W/AUTO DIFF [HEME] DAILYLAB 02/28/21 05:00 BMP - BASIC METABOLIC PANEL [CHEM] DAILYLAB CBC - COMP BLD CT W/AUTO DIFF [HEME] DAILYLAB Subjective - Subjective Patient Reports: Other (Patient continues to be nonresponsive to tactile or verbal stimuli. She Has not ingested anything significant by mouth in 3 days.) Objective Vital Signs: Vital Signs - 24 hr 02/23/21 02/23/21 02/23/21 09:11 09:39 13:00 Temperature 37.4 C 37.4 C Heart Rate [ 18 L Brachial] Heart Rate [ 73 81 Monitoring electrodes] Respiratory 20 95 H Rate Blood Pressure 173/71 H Blood Pressure [Left Brachial artery] Blood Pressure [Left Radial artery] Blood Pressure 152/47 H 168/55 H [Right Brachial artery] O2 Saturation 95 02/23/21 02/23/21 02/23/21 13:42 14:00 14:15 Temperature Heart Rate [ Brachial] Heart Rate [ 72 71 Monitoring electrodes] Respiratory Rate Blood Pressure 157/58 H Blood Pressure [Left Brachial artery] Blood Pressure [Left Radial artery] Blood Pressure 154/54 H 149/44 H [Right Brachial artery] O2 Saturation 02/23/21 02/23/21 02/23/21 16:50 17:25 17:26 Temperature 37.6 C Heart Rate [ 80 82 Brachial] Heart Rate [ Monitoring electrodes] Respiratory 20 Rate Blood Pressure 156/48 H Blood Pressure [Left Brachial artery] Blood Pressure [Left Radial artery] Blood Pressure 145/46 H 156/48 H [Right Brachial artery] O2 Saturation 95 02/23/21 02/23/21 02/23/21 17:30 17:34 20:15 Temperature 37.3 C Heart Rate [ 76 73 86 Brachial] Heart Rate [ Monitoring electrodes] Respiratory 19 Rate Blood Pressure Blood Pressure [Left Brachial artery] Blood Pressure [Left Radial artery] Blood Pressure 162/49 H 157/45 H 172/54 H [Right Brachial artery] O2 Saturation 94 02/23/21 02/23/21 02/23/21 20:17 20:23 20:25 Temperature Heart Rate [ 73 72 Brachial] Heart Rate [ Monitoring electrodes] Respiratory Rate Blood Pressure 172/54 H Blood Pressure [Left Brachial artery] Blood Pressure [Left Radial artery] Blood Pressure 164/50 H 158/49 H [Right Brachial artery] O2 Saturation 02/23/21 02/23/21 02/23/21 20:29 21:00 22:48 Temperature 37.6 C 36.8 C Heart Rate [ 70 Brachial] Heart Rate [ Monitoring electrodes] Respiratory Rate Blood Pressure Blood Pressure 172/57 H [Left Brachial artery] Blood Pressure [Left Radial artery] Blood Pressure 157/52 H [Right Brachial artery] O2 Saturation 02/23/21 02/24/21 02/24/21 23:47 00:03 00:10 Temperature 36.6 C Heart Rate [ 77 76 Brachial] Heart Rate [ Monitoring electrodes] Respiratory 20 Rate Blood Pressure 157/65 H Blood Pressure [Left Brachial artery] Blood Pressure 149/59 H 159/59 H [Left Radial artery] Blood Pressure [Right Brachial artery] O2 Saturation 95 02/24/21 02/24/21 02/24/21 00:15 00:20 00:35 Temperature Heart Rate [ 77 72 73 Brachial] Heart Rate [ Monitoring electrodes] Respiratory Rate Blood Pressure Blood Pressure [Left Brachial artery] Blood Pressure 174/55 H 170/52 H 162/54 H [Left Radial artery] Blood Pressure [Right Brachial artery] O2 Saturation 02/24/21 02/24/21 02/24/21 00:50 01:05 04:24 Temperature Heart Rate [ 72 76 Brachial] Heart Rate [ Monitoring electrodes] Respiratory Rate Blood Pressure 167/51 H Blood Pressure [Left Brachial artery] Blood Pressure 161/48 H 156/47 H [Left Radial artery] Blood Pressure [Right Brachial artery] O2 Saturation 02/24/21 02/24/21 02/24/21 04:30 04:35 04:40 Temperature 37.3 C Heart Rate [ 67 67 67 Brachial] Heart Rate [ Monitoring electrodes] Respiratory 20 Rate Blood Pressure Blood Pressure [Left Brachial artery] Blood Pressure 167/44 H 168/45 H 169/46 H [Left Radial artery] Blood Pressure [Right Brachial artery] O2 Saturation 93 02/24/21 02/24/21 02/24/21 04:55 05:10 05:15 Temperature Heart Rate [ 71 71 72 Brachial] Heart Rate [ Monitoring electrodes] Respiratory Rate Blood Pressure 169/48 H Blood Pressure [Left Brachial artery] Blood Pressure 165/45 H 169/48 H 171/45 H [Left Radial artery] Blood Pressure [Right Brachial artery] O2 Saturation 02/24/21 02/24/21 02/24/21 05:25 05:30 05:35 Temperature Heart Rate [ 76 78 79 Brachial] Heart Rate [ Monitoring electrodes] Respiratory Rate Blood Pressure Blood Pressure [Left Brachial artery] Blood Pressure 150/36 H 148/43 H 138/53 H [Left Radial artery] Blood Pressure [Right Brachial artery] O2 Saturation 02/24/21 02/24/21 02/24/21 05:44 05:50 06:05 Temperature Heart Rate [ 79 78 Brachial] Heart Rate [ Monitoring electrodes] Respiratory Rate Blood Pressure 153/43 H Blood Pressure [Left Brachial artery] Blood Pressure 150/44 H 151/43 H [Left Radial artery] Blood Pressure [Right Brachial artery] O2 Saturation 02/24/21 06:20 Temperature Heart Rate [ 80 Brachial] Heart Rate [ Monitoring electrodes] Respiratory Rate Blood Pressure Blood Pressure [Left Brachial artery] Blood Pressure 152/47 H [Left Radial artery] Blood Pressure [Right Brachial artery] O2 Saturation Oxygen O2 Source Room air I&O (Last 24 Hrs): Intake and Output Totals x24h 02/22/21 02/23/21 02/24/21 23:59 23:59 23:59 Intake Total 2098.75 2191.666 Output Total 750 1000 500 Balance 1348.75 1191.666 -500 Comments/Notes: General: No acute distress, Other (Unresponsive. Uncooperative. Calm) Neck: Supple, No JVD Neuro: Focal Deficits (Right sided residual weakness from previous CVA w/ contractures) Cardiovascular: Regular rate, 3/6 blowing systolic murmur Respiratory: Chest non-tender, No respiratory distress, Breath sounds nml Abdomen: Normal bowel sounds, Soft, No tenderness Extremities: No clubbing, No cyanosis, No edema, Other (right-sided residual weakness. right hand with contracture) Skin: Bruising on left hand - Results Results: Laboratory Results WBC 7.8 x10^3/uL (4.8-10.8) 02/24/21 05:47 RBC 3.51 10^6/uL (4.20-5.40) L 02/24/21 05:47 Hgb 10.7 g/dL (12.0-16.0) L 02/24/21 05:47 Hct 33.0 % (37.0-47.0) L 02/24/21 05:47 MCV 94.0 fL (81.0-99.0) 02/24/21 05:47 MCH 30.5 pg (27.0-31.0) 02/24/21 05:47 MCHC 32.4 g/dL (32.0-36.0) 02/24/21 05:47 RDW 12.6 % (12.0-15.0) 02/24/21 05:47 Plt Count 197 10^3/uL (130-450) 02/24/21 05:47 MPV 9.4 fL (7.9-10.8) 02/24/21 05:47 Neut # (Auto) 5.9 10^3/uL (1.5-6.6) 02/24/21 05:47 Lymph # (Auto) 1.1 10^3/uL (1.5-3.5) L 02/24/21 05:47 [place] # (Auto) 0.7 10^3/uL (0.0-1.0) 02/24/21 05:47 Eos # (Auto) 0.1 10^3/uL (0.0-0.7) 02/24/21 05:47 Baso # (Auto) 0.0 10^3/uL (0.0-0.1) 02/24/21 05:47 Absolute Nucleated RBC 0.00 x10^3/uL 02/24/21 05:47 Nucleated RBC % 0.0 /100WBC 02/24/21 05:47 Sodium 134 mmol/L (135-145) L 02/24/21 05:47 Potassium 3.3 mmol/L (3.5-5.0) L 02/24/21 05:47 Chloride 100 mmol/L (101-111) L 02/24/21 05:47 Carbon Dioxide 24 mmol/L (21-32) 02/24/21 05:47 Anion Gap 10.0 (6-13) 02/24/21 05:47 BUN 7 mg/dL (6-20) 02/24/21 05:47 Creatinine 0.6 mg/dL (0.4-1.0) 02/24/21 05:47 Estimated GFR (MDRD) 95 (>89) 02/24/21 05:47 Glucose 155 mg/dL (70-100) H 02/24/21 05:47 Lactic Acid 0.8 mmol/L (0.5-2.2) 02/21/21 13:51 Calcium 8.6 mg/dL (8.5-10.3) 02/24/21 05:47 Total Bilirubin 0.8 mg/dL (0.2-1.0) 02/21/21 13:08 AST 27 IU/L (10-42) 02/21/21 13:08 ALT 19 IU/L (10-60) 02/21/21 13:08 Alkaline Phosphatase 64 IU/L (42-121) 02/21/21 13:08 Troponin I High Sens 1196.0 ng/L (2.3-14.8) H* 02/23/21 06:38 B-Natriuretic Peptide 1112 pg/mL (5-100) H 02/22/21 05:57 Total Protein 6.6 g/dL (6.7-8.2) L 02/21/21 13:08 Albumin 3.6 g/dL (3.2-5.5) 02/21/21 13:08 Globulin 3.0 g/dL (2.1-4.2) 02/21/21 13:08 Albumin/Globulin Ratio 1.2 (1.0-2.2) 02/21/21 13:08 Lipase 19 U/L (22-51) L 02/21/21 13:08 TSH 3.53 uIU/mL (0.34-5.60) 02/21/21 13:08 Urine Color YELLOW 02/21/21 13:36 Urine Clarity CLOUDY (CLEAR) 02/21/21 13:36 Urine pH 7.5 PH (5.0-7.5) 02/21/21 13:36 Ur Specific [place] 1.020 (1.002-1.030) 02/21/21 13:36 Urine Protein 30 mg/dL (NEGATIVE) H 02/21/21 13:36 Urine Glucose (UA) NEGATIVE mg/dL (NEGATIVE) 02/21/21 13:36 Urine Ketones NEGATIVE mg/dL (NEGATIVE) 02/21/21 13:36 Urine Occult Blood MODERATE (NEGATIVE) H 02/21/21 13:36 Urine Nitrite NEGATIVE (NEGATIVE) 02/21/21 13:36 Urine Bilirubin NEGATIVE (NEGATIVE) 02/21/21 13:36 Urine Urobilinogen 0.2 (NORMAL) E.U./dL (NORMAL) 02/21/21 13:36 Ur Leukocyte Esterase MODERATE (NEGATIVE) H 02/21/21 13:36 Urine RBC 0-5 /HPF (0-5) 02/21/21 13:36 Urine WBC >25 /HPF (0-5) H 02/21/21 13:36 Ur Squamous Epith Cells FEW Squamous (<= Few) 02/21/21 13:36 Urine Bacteria Many /HPF (None Seen) H 02/21/21 13:36 Ur Microscopic Review INDICATED 02/21/21 13:36 Urine Culture Comments INDICATED 02/21/21 13:36 Nasal Adenovirus (PCR) NOT DETECTED 02/21/21 13:46 Nasal B. parapertussis DNA (PCR) NOT DETECTED 02/21/21 13:46 Nasal Coronavir 229E PCR NOT DETECTED 02/21/21 13:46 Nasal Coronavir HKU1 PCR NOT DETECTED 02/21/21 13:46 Nasal Coronavir NL63 PCR NOT DETECTED 02/21/21 13:46 Nasal Coronavir OC43 PCR NOT DETECTED 02/21/21 13:46 Nasal Enterovir/Rhinovir PCR NOT DETECTED 02/21/21 13:46 Nasal Influenza B PCR NOT DETECTED 02/21/21 13:46 Nasal Influenza A PCR NOT DETECTED 02/21/21 13:46 Nasal Parainfluen 1 PCR NOT DETECTED 02/21/21 13:46 Nasal Parainfluen 2 PCR NOT DETECTED 02/21/21 13:46 Nasal Parainfluen 3 PCR NOT DETECTED 02/21/21 13:46 Nasal Parainfluen 4 PCR NOT DETECTED 02/21/21 13:46 Nasal RSV (PCR) NOT DETECTED 02/21/21 13:46 Nasal B.pertussis DNA PCR NOT DETECTED 02/21/21 13:46 Nasal C.pneumoniae (PCR) NOT DETECTED 02/21/21 13:46 [place] Human Metapneumo PCR NOT DETECTED 02/21/21 13:46 Nasal M.pneumoniae (PCR) NOT DETECTED 02/21/21 13:46 Nasal SARS-CoV-2 (PCR) NOT DETECTED 02/21/21 13:46 Salicylates < 6.0 mg/dL 02/21/21 13:08 Urine Opiates Screen NEGATIVE (NEGATIVE) 02/21/21 13:36 Ur Oxycodone Screen NEGATIVE (NEGATIVE) 02/21/21 13:36 Urine Methadone Screen NEGATIVE (NEGATIVE) 02/21/21 13:36 Ur Propoxyphene Screen NEGATIVE (NEGATIVE) 02/21/21 13:36 Acetaminophen < 10 ug/mL (10-30) L 02/21/21 13:08 Ur Barbiturates Screen NEGATIVE (NEGATIVE) 02/21/21 13:36 Ur Tricyclics Screen NEGATIVE (NEGATIVE) 02/21/21 13:36 Ur Phencyclidine Scrn NEGATIVE (NEGATIVE) 02/21/21 13:36 Ur Amphetamine Screen NEGATIVE (NEGATIVE) 02/21/21 13:36 U Methamphetamines Scrn NEGATIVE (NEGATIVE) 02/21/21 13:36 U Benzodiazepines Scrn NEGATIVE (NEGATIVE) 02/21/21 13:36 Urine Cocaine Screen NEGATIVE (NEGATIVE) 02/21/21 13:36 U Cannabinoids Screen NEGATIVE (NEGATIVE) 02/21/21 13:36 Ethyl Alcohol < 5.0 mg/dL 02/21/21 13:08
[2021-02-24] MEDS: POTASSIUM CHLOR 10 MEQ/100 ML 10 MEQ/100 ML BAG IV SCH ×4 (07:56→12:10)
[2021-02-24] MEDS: amLODIPine 5 MG TABLET PO SCH ×2 (07:57→20:58)
[2021-02-24] MEDS: CITALOPRAM 10 MG TABLET PO SCH (07:57)
[2021-02-24] MEDS: MEMANTINE 5 MG TABLET PO SCH ×2 (07:58→20:58)
[2021-02-24] MEDS: LOSARTAN 50 MG TABLET PO SCH (07:58)
[2021-02-24] MEDS: SODIUM CHLORIDE FLUSH 0.9% 10 ML SYRINGE IVP SCH ×2 (10:08→17:07)
[2021-02-24] MEDS: cefTRIAXone 1 GM in SODIUM CHLORIDE 0.9% MINIBAG 100 ML IV SCH (10:08)
[2021-02-24] MEDS: NITROGLYCERIN 0.2 MG/HR PATCH TOP SCH (10:13)
[2021-02-24] MEDS: ASPIRIN 300 MG SUPP PR SCH (10:27)
[2021-02-24] MEDS: ZINC OXIDE 20% OINT 30 GM TUBE TOP PRN (10:36)
[2021-02-24] MEDS: SODIUM CHLORIDE FLUSH 0.9% 10 ML SYRINGE IVP PRN ×2 (11:13→14:01)
[2021-02-24] MEDS: DEXTROSE 5%-0.45% NACL 1,000 ML IV SCH (14:00)
[2021-02-24] MEDS: DONEPEZIL 5 MG TABLET PO SCH (20:58)
[2021-02-25] MEDS: METOPROLOL 5 MG/5 ML VIAL IVP SCH ×3 (00:11→09:53)
[2021-02-25] MEDS: SODIUM CHLORIDE FLUSH 0.9% 10 ML SYRINGE IVP SCH ×3 (00:11→17:20)
[2021-02-25] MEDS: DEXTROSE 5%-0.45% NACL 1,000 ML IV SCH ×2 (02:10→17:28)
[2021-02-25 06:03] LABS: BASOPHILS % (AUTO) 0.3 %; EOSINOPHILS # (AUTO) 0.1 10^3/uL (0.0-0.7); EOSINOPHILS % (AUTO) 0.8 %; HCT - HEMATOCRIT 32.3 % (37.0-47.0); HGB - HEMOGLOBIN 10.5 g/dL (12.0-16.0); LYMPHOCYTES # (AUTO) 0.9 10^3/uL (1.5-3.5); LYMPHOCYTES % (AUTO) 12.3 %; MEAN CORPUSCULAR HEMOGLOBIN 30.8 pg (27.0-31.0); MEAN CORPUSCULAR HGB CONC 32.5 g/dL (32.0-36.0); MEAN CORPUSCULAR VOLUME 94.7 fL (81.0-99.0); MEAN PLATELET VOLUME 9.1 fL (7.9-10.8); MONOCYTES # (AUTO) 0.8 10^3/uL (0.0-1.0); MONOCYTES % (AUTO) 10.8 %; NEUTROPHILS # (AUTO) 5.7 10^3/uL (1.5-6.6); NEUTROPHILS % (AUTO) 75.5 %; PLT - PLATELET COUNT 177 10^3/uL (130-450); RED BLOOD COUNT 3.41 10^6/uL (4.20-5.40); RED CELL DISTRIBUTION WIDTH 13.1 % (12.0-15.0); WHITE BLOOD COUNT 7.5 x10^3/uL (4.8-10.8)
[2021-02-25 06:15] LABS: CALCIUM 8.9 mg/dL (8.5-10.3); CREATININE 0.6 mg/dL (0.4-1.0); POTASSIUM 3.4 mmol/L (3.5-5.0)
[2021-02-25] MEDS: PANTOPRAZOLE 40 MG VIAL IVP SCH (06:56)
[2021-02-25] MEDS: amLODIPine 5 MG TABLET PO SCH (08:44)
[2021-02-25] MEDS: CITALOPRAM 10 MG TABLET PO SCH (08:45)
[2021-02-25] MEDS: LOSARTAN 50 MG TABLET PO SCH (08:45)
[2021-02-25] MEDS: MEMANTINE 5 MG TABLET PO SCH (08:45)
[2021-02-25] MEDS: ASPIRIN 300 MG SUPP PR SCH (09:09)
[2021-02-25] MEDS: ZINC OXIDE 20% OINT 30 GM TUBE TOP PRN (09:10)
[2021-02-25] MEDS: SODIUM CHLORIDE FLUSH 0.9% 10 ML SYRINGE IVP PRN (09:54)
[2021-02-25] MEDS: cefTRIAXone 1 GM in SODIUM CHLORIDE 0.9% MINIBAG 100 ML IV SCH (10:01)
--- NOTE | 2021-02-25 13:14 | PROVIDER PROGRESS NOTE ---
Subjective - Prog Note Date Prog Note Date: 02/25/21 - Subjective Subjective: She is able to open her eyes occasionally today and appears to track with them. She remains nonverbal. Family is present at bedside. Current Medications - Current Medications Current Medications: Active Medications Acetaminophen (Acetaminophen 325 Mg Tablet) 650 mg PO Q4HR PRN PRN Reason: Pain 1 to 4 Citalopram Hydrobromide (Citalopram 10 Mg Tablet) 30 mg PO DAILY [facility] Last Admin: 02/25/21 08:45 Dose: Not Given Documented by: Ceftriaxone Sodium 1 gm/ (Sodium Chloride) 100 mls @ 200 mls/hr IV DAILY [facility] Stop: 02/26/21 08:59 Last Infusion: 02/25/21 10:35 Dose: Infused Documented by: Dextrose/Sodium Chloride (D5.45ns) 1,000 mls @ 75 mls/hr IV .[id number] [facility] Last Infusion: 02/25/21 11:35 Dose: 75 mls/hr Documented by: Morphine Sulfate (Morphine 2 Mg/Ml Carpuject) 2 mg IVP Q2HR PRN PRN Reason: PAIN Multi-Ingredient Ointment (Zinc Oxide 20% Oint 30 Gm Tube) 1 applic TOP PRN PRN PRN Reason: Skin Care Last Admin: 02/25/21 09:10 Dose: 1 applic Documented by: Ondansetron HCl (Ondansetron 4 Mg/2 Ml Vial) 4 mg IVP Q6HR PRN PRN Reason: Nausea / Vomiting Sodium Chloride (Sodium Chloride Flush 0.9% 10 Ml Syringe) 10 ml IVP PRN PRN PRN Reason: NEEDED PER PROVIDER ORDERS Last Admin: 02/25/21 09:54 Dose: 10 ml Documented by: Sodium Chloride (Sodium Chloride Flush 0.9% 10 Ml Syringe) 10 ml IVP 0100,0900,1700 [facility] Last Admin: 02/25/21 10:02 Dose: 10 ml Documented by: Albuterol Sulfate [Proair Hfa Inhaler] 2 puffs INH Q4HR 02/21/21 Amlodipine Besylate [Norvasc] 2.5 mg PO BID 02/21/21 Aspirin/Dipyridamole [Aspirin-Dipyridam ER 25-200 mg] 1 tab PO BID 02/21/21 Citalopram [CeleXA] 30 mg PO DAILY 02/21/21 Desipramine HCl 100 mg PO HS 02/21/21 Donepezil [Aricept] 10 mg PO HS 02/21/21 HYDROcod/ACETAM 5/325 [[place] 5/325] 1 tab PO Q4HR 02/21/21 Loratadine [Claritin] 10 mg PO BID 02/21/21 Losartan Potassium [Cozaar] 100 mg PO DAILY 02/21/21 Memantine HCl [Namenda] 10 mg PO BID 02/21/21 Metoprolol Succinate [[place]sp[place] Sprinkle] 50 mg PO DAILY 02/21/21 Multivitamin 1 tab PO DAILY 02/21/21 Nystatin Cream [Mycostatin Cream] 1 applic TOP QID 02/21/21 Omeprazole Magnesium 40 mg PO QDAC 02/21/21 Solifenacin Succinate [Vesicare] 10 mg PO DAILY 02/21/21 polyethylene glycoL 3350 [Polyethylene Glycol 3350] 17 gm PO DAILY 02/21/21 Objective - Vital Signs/Intake & Output Reviewed Vital Signs: Yes Vital Signs: Vital Signs x48h Temp Pulse Pulse Resp BP BP BP 02/25/21 12:57 37.0 C 68 24 148/67 H 02/25/21 12:16 137/45 H 02/25/21 09:53 148/43 H 02/25/21 08:23 37.4 C 84 18 155/52 H 02/25/21 06:11 37.6 C 89 21 166/52 H Pulse Ox 02/25/21 12:57 96 02/25/21 12:16 02/25/21 09:53 02/25/21 08:23 96 02/25/21 06:11 91 L Intake & Output: Intake & Output 02/22/21 02/23/21 02/24/21 02/25/21 23:59 23:59 23:59 23:59 Intake Total 2098.75 2191.666 2055.416 1006.25 Output Total 750 1000 1650 500 Balance 1348.75 1191.666 405.416 506.25 - Objective General Appearance: positive: No acute distress, Lethargic, Other (She is somnolent but will occasionally open her eyes and appeared to track.) Eyes Bilateral: positive: Conjunctivae nml, Other ENT: positive: Dry mucous membranes Neck: positive: Nml inspection Respiratory: positive: No respiratory distress. negative: Wheezes, Rales Cardiovascular: positive: Systolic murmur. negative: No murmur, Tachycardia Abdomen: positive: Non-tender, No distention. negative: Tenderness Skin: positive: Warm, Dry Extremities: positive: No pedal edema Neurologic/Psychiatric: positive: Other (Right upper and lower extremity contractures noted. She does not follow commands.) - Lab Results Fish Bones: 02/25/21 05:50 02/25/21 05:50 Other Labs: Lab Results x24hrs 02/25/21 02/25/21 Range/Units 05:50 05:50 WBC 7.5 (4.8-10.8) x10^3/uL RBC 3.41 L (4.20-5.40) 10^6/uL Hgb 10.5 L (12.0-16.0) g/dL Hct 32.3 L (37.0-47.0) % MCV 94.7 (81.0-99.0) fL MCH 30.8 (27.0-31.0) pg MCHC 32.5 (32.0-36.0) g/dL RDW 13.1 (12.0-15.0) % Plt Count 177 (130-450) 10^3/uL MPV 9.1 (7.9-10.8) fL Neut # (Auto) 5.7 (1.5-6.6) 10^3/uL Lymph # (Auto) 0.9 L (1.5-3.5) 10^3/uL [place] # (Auto) 0.8 (0.0-1.0) 10^3/uL Eos # (Auto) 0.1 (0.0-0.7) 10^3/uL Baso # (Auto) 0.0 (0.0-0.1) 10^3/uL Absolute Nucleated RBC 0.00 x10^3/uL Nucleated RBC % 0.0 /100WBC Sodium 137 (135-145) mmol/L Potassium 3.4 L (3.5-5.0) mmol/L Chloride 103 (101-111) mmol/L Carbon Dioxide 25 (21-32) mmol/L Anion Gap 9.0 (6-13) BUN 6 (6-20) mg/dL Creatinine 0.6 (0.4-1.0) mg/dL Estimated GFR (MDRD) 95 (>89) Glucose 140 H (70-100) mg/dL Calcium 8.9 (8.5-10.3) mg/dL Assessment/Plan - Problem List (1) Altered mental status Impression: She is a little more awake today but still minimally responsive. Will occasionally open her eyes and track with them. Still does not follow commands. The etiology of this is not clear. We initially thought this may be due to infection but she still not improved with antibiotics and urine culture had no growth. She also received IV fluids without improvement. She may have had a stroke but after discussion with the family today, they do not want to proceed with MRI as it would not change our management. They admit that she has been declining with her underlying dementia and now she has severe aortic stenosis as well. They are open to the idea of hospice and prefer to focus on her comfort. Qualifiers: Altered mental status type: somnolence Qualified Code(s): R40.0 - Somnolenc e (2) Aortic stenosis Impression: Echocardiogram revealed severe aortic stenosis. She is not a candidate for intervention and family would like to focus on her comfort. (3) NSTEMI (non-ST elevated myocardial infarction) Impression: The concern was for NSTEMI and she was treated medically initially. Echocardiogram revealed preserved ejection fraction without any wall motion normalities. Lovenox has since been discontinued. Given the goals focus on her comfort, we will discontinue all cardiac medications. (4) Dementia Impression: She has dementia at baseline and appears to have been progressing over the past few months. She has had difficulty with finding words and decreased oral intake. (5) UTI (urinary tract infection) Impression: Concern is for urinary tract infection but urine culture had no growth. We will discontinue antibiotics. Qualifiers: Urinary tract infection type: acute cystitis Hematuria presence: without hematuria Qualified Code(s): N30.00 - Acute cystitis without hematuria (6) History of stroke with residual deficit Impression: She is a history of stroke with residual right-sided deficit that has left her wheelchair-bound. The goal is now to focus on her comfort and hospice has been contacted.
--- NOTE | 2021-02-25 13:16 | ADVANCE CARE PLANNING NOTE ---
Advance Care Planning - Planning Encounter Date: 02/25/21 Time: 12:20 Purpose: To clarify goals of care. Parties in Attendance: The patient, her , and 2 daughters. Decisional Capacity of the Patient: She is unable to make her own medical decisions. - Diagnosis for Encounter (1) Altered mental status Qualifiers: Altered mental status type: somnolence Qualified Code(s): R40.0 - Somnolence Summary: She is now mated with altered status of unclear etiology. Concern has been for a stroke but we have not obtain MRI as it would not changer fixer. She does have dementia at baseline and has been declining over the past few months. There has been no other obvious etiology of her altered metal status. - Encounter Subjective/Patient's Story: She lives at home with her and daughter. She had a stroke 20 years ago and has been dependent on her ADLs since then. She has residual right-sided deficits and is wheelchair-bound at baseline. She also had progressive dementia and has become more forgetful. She has also had decreased oral intake over the past few months. Objective/Medical Story: She is now admitted after being found unresponsive. Initial concern is for urinary tract infection but despite IV antibiotics she has not improved as well as IV hydration. CT head showed no acute abnormalities. We did consider obtaining MRI to evaluate for stroke but this was not obtained as it would not changer fixer. She is still minimally responsive but location of her eyes and track. She is also not found to have severe aortic stenosis based off of the most recent echocardiogram. Given her poor baseline due to dementia and a history of stroke with residual right-sided deficits, family is leaning towards comfort measures. Goals of Care: The patients and daughters believe that the patient would want to focus on her comfort. They admit she has been declining due to her dementia. She is dependent on most of her ADLs at baseline and now that she has been declining over the past few months, they understand she is declining evident by this acute change in her mental status. They also understand about her aortic stenosis and believe she has been told this in the past and that she was not a surgical candidate. Plan: The plan at this time will be to continue IV fluids but stop antibiotics. We will not obtain MRI as it would not changer fixer. Family would like to change the patient to hospice and I will speak with Dr. Busby of the hospice service. They are not sure that we will do care for her at home but are open to caregivers at home or SNF for hospice. We will discuss this with social work. We will discontinue all medications except those which provide her with comfort. Additional Discussion: We discussed nature of aortic stenosis. We also discussed the trend of dementia. Code Status: Do Not Attempt Resuscitation Time spent on advance care plannin
[2021-02-26] MEDS: ZINC OXIDE 20% OINT 30 GM TUBE TOP PRN ×3 (01:15→14:59)
[2021-02-26] MEDS: SODIUM CHLORIDE FLUSH 0.9% 10 ML SYRINGE IVP SCH ×4 (05:57→23:50)
[2021-02-26] MEDS: DEXTROSE 5%-0.45% NACL 1,000 ML IV SCH ×2 (06:32→19:13)
[2021-02-26] MEDS: CITALOPRAM 10 MG TABLET PO SCH (08:06)
[2021-02-26] MEDS: MORPHINE 2 MG/ML CARPUJECT IVP PRN ×3 (11:47→19:13)
--- NOTE | 2021-02-26 12:06 | PROVIDER PROGRESS NOTE ---
Subjective - Prog Note Date Prog Note Date: 02/26/21 - Subjective Subjective: Patient is resting comfortably in bed. Family is at bedside. Current Medications - Current Medications Current Medications: Active Medications Acetaminophen (Acetaminophen 325 Mg Tablet) 650 mg PO Q4HR PRN PRN Reason: Pain 1 to 4 Citalopram Hydrobromide (Citalopram 10 Mg Tablet) 30 mg PO DAILY [facility] Last Admin: 02/26/21 08:06 Dose: Not Given Documented by: Dextrose/Sodium Chloride (D5.45ns) 1,000 mls @ 75 mls/hr IV .[id number] [facility] Last Admin: 02/26/21 06:32 Dose: 75 mls/hr Documented by: Morphine Sulfate (Morphine 2 Mg/Ml Carpuject) 2 mg IVP Q2HR PRN PRN Reason: PAIN Last Admin: 02/26/21 11:47 Dose: 2 mg Documented by: Multi-Ingredient Ointment (Zinc Oxide 20% Oint 30 Gm Tube) 1 applic TOP PRN PRN PRN Reason: Skin Care Last Admin: 02/26/21 06:55 Dose: 1 applic Documented by: Ondansetron HCl (Ondansetron 4 Mg/2 Ml Vial) 4 mg IVP Q6HR PRN PRN Reason: Nausea / Vomiting Sodium Chloride (Sodium Chloride Flush 0.9% 10 Ml Syringe) 10 ml IVP PRN PRN PRN Reason: NEEDED PER PROVIDER ORDERS Last Admin: 02/25/21 09:54 Dose: 10 ml Documented by: Sodium Chloride (Sodium Chloride Flush 0.9% 10 Ml Syringe) 10 ml IVP 0100,0900,1700 [facility] Last Admin: 02/26/21 08:06 Dose: Not Given Documented by: Albuterol Sulfate [Proair Hfa Inhaler] 2 puffs INH Q4HR 02/21/21 Amlodipine Besylate [Norvasc] 2.5 mg PO BID 02/21/21 Aspirin/Dipyridamole [Aspirin-Dipyridam ER 25-200 mg] 1 tab PO BID 02/21/21 Citalopram [CeleXA] 30 mg PO DAILY 02/21/21 Desipramine HCl 100 mg PO HS 02/21/21 Donepezil [Aricept] 10 mg PO HS 02/21/21 HYDROcod/ACETAM 5/325 [[place] 5/325] 1 tab PO Q4HR 02/21/21 Loratadine [Claritin] 10 mg PO BID 02/21/21 Losartan Potassium [Cozaar] 100 mg PO DAILY 02/21/21 Memantine HCl [Namenda] 10 mg PO BID 02/21/21 Metoprolol Succinate [Kapspargo Sprinkle] 50 mg PO DAILY 02/21/21 Multivitamin 1 tab PO DAILY 02/21/21 Nystatin Cream [Mycostatin Cream] 1 applic TOP QID 02/21/21 Omeprazole Magnesium 40 mg PO QDAC 02/21/21 Solifenacin Succinate [Vesicare] 10 mg PO DAILY 02/21/21 polyethylene glycoL 3350 [Polyethylene Glycol 3350] 17 gm PO DAILY 02/21/21 Objective - Vital Signs/Intake & Output Reviewed Vital Signs: Yes Vital Signs: Vital Signs x48h Temp Pulse Resp Pulse Ox 02/26/21 07:55 37.6 C 93 16 95 Intake & Output: Intake & Output 02/23/21 02/24/21 02/25/21 02/26/21 23:59 23:59 23:59 23:59 Intake Total 2191.666 2055.416 1713.75 691.25 Output Total 1000 1650 1000 600 Balance 1191.666 405.416 713.75 91.25 - Objective General Appearance: positive: No acute distress, Other (She will open her eyes when spoken to but does not follow command) Eyes Bilateral: positive: Conjunctivae nml ENT: positive: ENT inspection nml Respiratory: positive: No respiratory distress - Lab Results Fish Bones: 02/25/21 05:50 02/25/21 05:50 Assessment/Plan - Problem List (1) Altered mental status Impression: She still remains minimally responsive. She will occasionally open her eyes and track but does not follow commands. She is not eating and is not interacting with her family. The cause of the acute change in mental status is not clear but we suspect she may potentially have had a stroke but we did not obtain MRI as it would not environmental change analyst and now the goal is to focus on her comfort. We have contacted hospice I spoke with Dr. Busby yesterday. The issue at this time is that family is not have enough support at home to take care of the patient she is looking to get caregivers at home or consider respite care. We are working closely with social work and hospice. Once we have a discharge plan in place then the patient will be discharged. Qualifiers: Altered mental status type: somnolence Qualified Code(s): R40.0 - Somnolence (2) Aortic stenosis Impression: This was evident on the echocardiogram obtained this admission. She not a candidate for intervention and the focus is now her comfort. (3) NSTEMI (non-ST elevated myocardial infarction) Impression: The concern was for NSTEMI and she was treated medically initially. Echocardiogram revealed preserved ejection fraction without any wall motion no rmalities. Lovenox has since been discontinued. Given the goals focus on her comfort, we have discontinued all cardiac medications. (4) Dementia Impression: She has had progressive dementia and has been declining over the past few months. The focus is now on her comfort. (5) UTI (urinary tract infection) Impression: Initial concern was for urinary tract infection but urine culture had no growth. Antibiotics were discontinued yesterday. Qualifiers: Urinary tract infection type: acute cystitis Hematuria presence: without hematuria Qualified Code(s): N30.00 - Acute cystitis without hematuria (6) History of stroke with residual deficit Impression: She is a history of stroke with residual right-sided deficit that has left her wheelchair-bound. The goal is now to focus on her comfort and hospice has been contacted.
[2021-02-27] MEDS: DEXTROSE 5%-0.45% NACL 1,000 ML IV SCH ×2 (08:08→21:50)
[2021-02-27] MEDS: SODIUM CHLORIDE FLUSH 0.9% 10 ML SYRINGE IVP SCH ×3 (08:08→23:02)
[2021-02-27] MEDS: CITALOPRAM 10 MG TABLET PO SCH (08:08)
--- NOTE | 2021-02-27 08:31 | PROVIDER PROGRESS NOTE ---
Subjective - Prog Note Date Prog Note Date: 02/27/21 - Subjective Subjective: She remains nonverbal. Current Medications - Current Medications Current Medications: Active Medications Acetaminophen (Acetaminophen 325 Mg Tablet) 650 mg PO Q4HR PRN PRN Reason: Pain 1 to 4 Citalopram Hydrobromide (Citalopram 10 Mg Tablet) 30 mg PO DAILY [facility] Last Admin: 02/27/21 08:08 Dose: Not Given Documented by: Dextrose/Sodium Chloride (D5.45ns) 1,000 mls @ 75 mls/hr IV .[id number] [facility] Last Admin: 02/27/21 08:08 Dose: 75 mls/hr Documented by: Morphine Sulfate (Morphine 2 Mg/Ml Carpuject) 2 mg IVP Q2HR PRN PRN Reason: PAIN Last Admin: 02/26/21 19:13 Dose: 2 mg Documented by: Multi-Ingredient Ointment (Zinc Oxide 20% Oint 30 Gm Tube) 1 applic TOP PRN PRN PRN Reason: Skin Care Last Admin: 02/26/21 14:59 Dose: 1 applic Documented by: Ondansetron HCl (Ondansetron 4 Mg/2 Ml Vial) 4 mg IVP Q6HR PRN PRN Reason: Nausea / Vomiting Sodium Chloride (Sodium Chloride Flush 0.9% 10 Ml Syringe) 10 ml IVP PRN PRN PRN Reason: NEEDED PER PROVIDER ORDERS Last Admin: 02/25/21 09:54 Dose: 10 ml Documented by: Sodium Chloride (Sodium Chloride Flush 0.9% 10 Ml Syringe) 10 ml IVP 0100,0900,1700 [facility] Last Admin: 02/27/21 08:08 Dose: Not Given Documented by: Albuterol Sulfate [Proair Hfa Inhaler] 2 puffs INH Q4HR 02/21/21 Amlodipine Besylate [Norvasc] 2.5 mg PO BID 02/21/21 Aspirin/Dipyridamole [Aspirin-Dipyridam ER 25-200 mg] 1 tab PO BID 02/21/21 Citalopram [CeleXA] 30 mg PO DAILY 02/21/21 Desipramine HCl 100 mg PO HS 02/21/21 Donepezil [Aricept] 10 mg PO HS 02/21/21 HYDROcod/ACETAM 5/325 [[place] 5/325] 1 tab PO Q4HR 02/21/21 Loratadine [Claritin] 10 mg PO BID 02/21/21 Losartan Potassium [Cozaar] 100 mg PO DAILY 02/21/21 Memantine HCl [Namenda] 10 mg PO BID 02/21/21 Metoprolol Succinate [Kapspargo Sprinkle] 50 mg PO DAILY 02/21/21 Multivitamin 1 tab PO DAILY 02/21/21 Nystatin Cream [Mycostatin Cream] 1 applic TOP QID 02/21/21 Omeprazole Magnesium 40 mg PO QDAC 02/21/21 Solifenacin Succinate [Vesicare] 10 mg PO DAILY 02/21/21 polyethylene glycoL 3350 [Polyethylene Glycol 3350] 17 gm PO DAILY 02/21/21 Objective - Vital Signs/Intake & Output Reviewed Vital Signs: Yes Vital Signs: Vital Signs x48h Temp Pulse Resp BP Pulse Ox 02/27/21 08:00 37.1 C 102 H 16 134/60 H 95 Intake & Output: Intake & Output 02/24/21 02/25/21 02/26/21 02/27/21 23:59 23:59 23:59 23:59 Intake Total 2055.416 1713.75 1642.50 968.75 Output Total 1650 1000 950 50 Balance 405.416 713.75 692.50 918.75 - Objective General Appearance: positive: No acute distress, Other (Appears comfortable. Eyes are open and she occasionally tracks. Remains nonverbal.) Eyes Bilateral: positive: Conjunctivae nml ENT: positive: ENT inspection nml Respiratory: positive: No respiratory distress Neurologic/Psychiatric: positive: Other (She does not follow commands. Right upper and lower extremity contractures noted.) - Lab Results Fish Bones: 02/25/21 05:50 02/25/21 05:50 Assessment/Plan - Problem List (1) Altered mental status Impression: She is actually more alert today than previous days. Her eyes are open she does track but does not follow commands. Family has decided to focus on her comfort given she had been declining prior to this hospitalization. No further work-up will be obtained given the focus on comfort. Qualifiers: Altered mental status type: somnolence Qualified Code(s): R40.0 - Somno lence (2) Aortic stenosis Impression: This was evident on the echocardiogram obtained this admission. She is not a candidate for intervention and the focus is now her comfort. (3) NSTEMI (non-ST elevated myocardial infarction) Impression: The concern was for NSTEMI and she was treated medically initially. Echocar diogram revealed preserved ejection fraction without any wall motion normalities. Lovenox has since been discontinued. Given the goals focus on her comfort, we have discontinued all cardiac medications. (4) Dementia Impression: She has had progressive dementia and has been declining over the past few months. The focus is now on her comfort. (5) UTI (urinary tract infection) Impression: Initial concern was for urinary tract infection but urine culture had no growth. Antibiotics have since been discontinued. Qualifiers: Urinary tract infection type: acute cystitis Hematuria presence: without hematuria Qualified Code(s): N30.00 - Acute cystitis without hematuria (6) History of stroke with residual deficit Impression: She has a history of stroke with residual right-sided deficit that has left her wheelchair-bound. The goal is now to focus on her comfort and hospice has been contacted.
[2021-02-27] MEDS: MORPHINE 2 MG/ML CARPUJECT IVP PRN ×2 (13:01→19:10)
[2021-02-28] MEDS: MORPHINE 2 MG/ML CARPUJECT IVP PRN ×3 (00:14→18:44)
[2021-02-28] MEDS: SODIUM CHLORIDE FLUSH 0.9% 10 ML SYRINGE IVP SCH ×2 (07:40→17:02)
[2021-02-28] MEDS: CITALOPRAM 10 MG TABLET PO SCH (07:40)
[2021-02-28] MEDS: DEXTROSE 5%-0.45% NACL 1,000 ML IV SCH (09:33)
--- NOTE | 2021-02-28 18:17 | PROVIDER PROGRESS NOTE ---
Subjective - Prog Note Date Prog Note Date: 02/28/21 - Subjective Subjective: She is resting comfortably. Current Medications - Current Medications Current Medications: Active Medications Acetaminophen (Acetaminophen 325 Mg Tablet) 650 mg PO Q4HR PRN PRN Reason: Pain 1 to 4 Citalopram Hydrobromide (Citalopram 10 Mg Tablet) 30 mg PO DAILY [facility] Last Admin: 02/28/21 07:40 Dose: Not Given Documented by: Dextrose/Sodium Chloride (D5.45ns) 1,000 mls @ 75 mls/hr IV .[id number] [facility] Last Admin: 02/28/21 09:33 Dose: 75 mls/hr Documented by: Morphine Sulfate (Morphine 2 Mg/Ml Carpuject) 2 mg IVP Q2HR PRN PRN Reason: PAIN Last Admin: 02/28/21 07:40 Dose: 2 mg Documented by: Multi-Ingredient Ointment (Zinc Oxide 20% Oint 30 Gm Tube) 1 applic TOP PRN PRN PRN Reason: Skin Care Last Admin: 02/26/21 14:59 Dose: 1 applic Documented by: Ondansetron HCl (Ondansetron 4 Mg/2 Ml Vial) 4 mg IVP Q6HR PRN PRN Reason: Nausea / Vomiting Last Admin: 02/28/21 00:14 Dose: 4 mg Documented by: Sodium Chloride (Sodium Chloride Flush 0.9% 10 Ml Syringe) 10 ml IVP PRN PRN PRN Reason: NEEDED PER PROVIDER ORDERS Last Admin: 02/25/21 09:54 Dose: 10 ml Documented by: Sodium Chloride (Sodium Chloride Flush 0.9% 10 Ml Syringe) 10 ml IVP 0100,0900,1700 [facility] Last Admin: 02/28/21 17:02 Dose: Not Given Documented by: Albuterol Sulfate [Proair Hfa Inhaler] 2 puffs INH Q4HR 02/21/21 Amlodipine Besylate [Norvasc] 2.5 mg PO BID 02/21/21 Aspirin/Dipyridamole [Aspirin-Dipyridam ER 25-200 mg] 1 tab PO BID 02/21/21 Citalopram [CeleXA] 30 mg PO DAILY 02/21/21 Desipramine HCl 100 mg PO HS 02/21/21 Donepezil [Aricept] 10 mg PO HS 02/21/21 HYDROcod/ACETAM 5/325 [[place] 5/325] 1 tab PO Q4HR 02/21/21 Loratadine [Claritin] 10 mg PO BID 02/21/21 Losartan Potassium [Cozaar] 100 mg PO DAILY 02/21/21 Memantine HCl [Namenda] 10 mg PO BID 02/21/21 Metoprolol Succinate [Kapspargo Sprinkle] 50 mg PO DAILY 02/21/21 Multivitamin 1 tab PO DAILY 02/21/21 Nystatin Cream [Mycostatin Cream] 1 applic TOP QID 02/21/21 Omeprazole Magnesium 40 mg PO QDAC 02/21/21 Solifenacin Succinate [Vesicare] 10 mg PO DAILY 02/21/21 polyethylene glycoL 3350 [Polyethylene Glycol 3350] 17 gm PO DAILY 02/21/21 Objective - Vital Signs/Intake & Output Reviewed Vital Signs: Yes Vital Signs: Vital Signs x48h Temp Pulse Resp BP Pulse Ox 02/28/21 15:45 36.9 C 91 18 140/53 H 96 Intake & Output: Intake & Output 02/25/21 02/26/21 02/27/21 02/28/21 23:59 23:59 23:59 23:59 Intake Total 1713.75 1642.50 1968.75 878.75 Output Total 1000 950 350 600 Balance 713.75 692.50 1618.75 278.75 - Objective General Appearance: positive: No acute distress, Lethargic Eyes Bilateral: positive: Normal inspection, Conjunctivae nml Respiratory: positive: No respiratory distress - Lab Results Fish Bones: 02/25/21 05:50 02/25/21 05:50 Assessment/Plan - Problem List (1) Altered mental status Impression: She is still quite somnolent but will occasionally open her eyes. Has not made much progress in since yesterday. If anything, she appears more lethargic today. The focus is now on her comfort she will continue with morphine as needed. She will be discharged to home on Wednesday with hospice. Qualifiers: Altered mental status type: somnolence Qualified Code(s): R40.0 - Somnolence (2) Aortic stenosis Impression: This was evident on the echocardiogram obtained this admission. She is not a candidate for intervention and the focus is now her comfort. (3) NSTEMI (non-ST elevated myocardial infarction) Impression: The concern was for NSTEMI and she was treated medically initially. Echocardiogram revealed preserved ejection fraction without any wall motion normalities. Lovenox has since been discontinued. Given the goals focus on her comfort, we have discontinued all cardiac medications. (4) Dementia Impression: She has had progressive dementia and has been declining over the past few months. The focus is now on her comfort. (5) UTI (urinary tract infection) Impression: Initial concern was for urinary tract infection but urine culture had no growth. Antibiotics have since been discontinued. Qualifiers: Urinary tract infection type: acute cystitis Hematuria presence: without hematuria Qualified Code(s): N30.00 - Acute cystitis without hematuria (6) History of stroke with residual deficit Impression: She has a history of stroke with residual right-sided deficit that has left her wheelchair-bound. The goal is now to focus on her comfort and hospice has been contacted.
[2021-03-01] MEDS: DEXTROSE 5%-0.45% NACL 1,000 ML IV SCH ×2 (00:57→13:50)
[2021-03-01] MEDS: SODIUM CHLORIDE FLUSH 0.9% 10 ML SYRINGE IVP SCH ×3 (01:00→17:10)
[2021-03-01] MEDS: CITALOPRAM 10 MG TABLET PO SCH (10:27)
--- NOTE | 2021-03-01 11:19 | PROVIDER PROGRESS NOTE ---
Subjective - Prog Note Date Prog Note Date: 03/01/21 - Subjective Subjective: She is resting comfortably. Family is at bedside. Current Medications - Current Medications Current Medications: Active Medications Acetaminophen (Acetaminophen 325 Mg Tablet) 650 mg PO Q4HR PRN PRN Reason: Pain 1 to 4 Citalopram Hydrobromide (Citalopram 10 Mg Tablet) 30 mg PO DAILY [facility] Last Admin: 03/01/21 10:27 Dose: Not Given Documented by: Dextrose/Sodium Chloride (D5.45ns) 1,000 mls @ 75 mls/hr IV .[id number] [facility] Last Admin: 03/01/21 00:57 Dose: 75 mls/hr Documented by: Morphine Sulfate (Morphine 2 Mg/Ml Carpuject) 2 mg IVP Q2HR PRN PRN Reason: PAIN Last Admin: 02/28/21 18:44 Dose: 2 mg Documented by: Multi-Ingredient Ointment (Zinc Oxide 20% Oint 30 Gm Tube) 1 applic TOP PRN PRN PRN Reason: Skin Care Last Admin: 02/26/21 14:59 Dose: 1 applic Documented by: Ondansetron HCl (Ondansetron 4 Mg/2 Ml Vial) 4 mg IVP Q6HR PRN PRN Reason: Nausea / Vomiting Last Admin: 02/28/21 00:14 Dose: 4 mg Documented by: Sodium Chloride (Sodium Chloride Flush 0.9% 10 Ml Syringe) 10 ml IVP PRN PRN PRN Reason: NEEDED PER PROVIDER ORDERS Last Admin: 02/25/21 09:54 Dose: 10 ml Documented by: Sodium Chloride (Sodium Chloride Flush 0.9% 10 Ml Syringe) 10 ml IVP 0100,0900,1700 [facility] Last Admin: 03/01/21 01:00 Dose: Not Given Documented by: Albuterol Sulfate [Proair Hfa Inhaler] 2 puffs INH Q4HR 02/21/21 Amlodipine Besylate [Norvasc] 2.5 mg PO BID 02/21/21 Aspirin/Dipyridamole [Aspirin-Dipyridam ER 25-200 mg] 1 tab PO BID 02/21/21 Citalopram [CeleXA] 30 mg PO DAILY 02/21/21 Desipramine HCl 100 mg PO HS 02/21/21 Donepezil [Aricept] 10 mg PO HS 02/21/21 HYDROcod/ACETAM 5/325 [[place] 5/325] 1 tab PO Q4HR 02/21/21 Loratadine [Claritin] 10 mg PO BID 02/21/21 Losartan Potassium [Cozaar] 100 mg PO DAILY 02/21/21 Memantine HCl [Namenda] 10 mg PO BID 02/21/21 Metoprolol Succinate [Kapspargo Sprinkle] 50 mg PO DAILY 02/21/21 Multivitamin 1 tab PO DAILY 02/21/21 Nystatin Cream [Mycostatin Cream] 1 applic TOP QID 02/21/21 Omeprazole Magnesium 40 mg PO QDAC 02/21/21 Solifenacin Succinate [Vesicare] 10 mg PO DAILY 02/21/21 polyethylene glycoL 3350 [Polyethylene Glycol 3350] 17 gm PO DAILY 02/21/21 Objective - Vital Signs/Intake & Output Reviewed Vital Signs: Yes Vital Signs: Vital Signs x48h Temp Pulse Resp BP Pulse Ox 03/01/21 08:00 36.9 C 90 22 142/47 H 92 Intake & Output: Intake & Output 02/26/21 02/27/21 02/28/21 03/01/21 23:59 23:59 23:59 23:59 Intake Total 1642.50 1968.75 1848.75 0 Output Total 950 350 700 100 Balance 692.50 1618.75 1148.75 -100 - Objective General Appearance: positive: No acute distress, Lethargic Respiratory: positive: No respiratory distress - Lab Results Fish Bones: 02/25/21 05:50 02/25/21 05:50 Assessment/Plan - Problem List (1) Altered mental status Impression: She is little more alert today but still quite lethargic. She is not interacting with family but will occasionally track with her eyes. Plan to discharge home on Wednesday with hospice once caregivers are set up. Qualifiers: Altered mental status type: somnolence Qualified Code(s): R40.0 - Somnolence (2) Aortic stenosis Impression: This was evident on the echocardiogram obtained this admission. She is not a candidate for intervention and the focus is now her comfort. (3) NSTEMI (non-ST elevated myocardial infarction) Impression: The concern was for NSTEMI and she was treated medically initially. Echocardiogram revealed preserved ejection fraction without any wall motion normalities. Lovenox has since been discontinued. Given the goals focus on her comfort, we have discontinued all cardiac medications. (4) Dementia Impression: She has had progressive dementia and has been declining over the past few months. The focus is now on her comfort. (5) UTI (urinary tract infection) Impression: Initial concern was for urinary tract infection but urine culture had no growth. Antibiotics have since been discontinued. Qualifiers: Urinary tract infection type: acute cystitis Hematuria presence: without hematuria Qualified Code(s): N30.00 - Acute cystitis without hematuria (6) History of stroke with residual deficit Impression: She has a history of stroke with residual right-sided deficit that has left her wheelchair-bound. The goal is now to focus on her comfort and hospice has been contacted.
[2021-03-01] MEDS: ZINC OXIDE 20% OINT 30 GM TUBE TOP PRN (23:45)
[2021-03-02] MEDS: ZINC OXIDE 20% OINT 30 GM TUBE TOP PRN (02:45)
[2021-03-02] MEDS: DEXTROSE 5%-0.45% NACL 1,000 ML IV SCH ×2 (03:02→17:00)
[2021-03-02] MEDS: SODIUM CHLORIDE FLUSH 0.9% 10 ML SYRINGE IVP SCH ×3 (03:12→17:44)
--- NOTE | 2021-03-02 08:20 | PROVIDER PROGRESS NOTE ---
Subjective - Prog Note Date Prog Note Date: 03/02/21 - Subjective Subjective: Resting comfortably in bed. Current Medications - Current Medications Current Medications: Active Medications Acetaminophen (Acetaminophen 325 Mg Tablet) 650 mg PO Q4HR PRN PRN Reason: Pain 1 to 4 Citalopram Hydrobromide (Citalopram 10 Mg Tablet) 30 mg PO DAILY [facility] Last Admin: 03/02/21 09:21 Dose: Not Given Documented by: Dextrose/Sodium Chloride (D5.45ns) 1,000 mls @ 75 mls/hr IV .[id number] [facility] Last Admin: 03/02/21 03:02 Dose: 75 mls/hr Documented by: Morphine Sulfate (Morphine 2 Mg/Ml Carpuject) 2 mg IVP Q2HR PRN PRN Reason: PAIN Last Admin: 02/28/21 18:44 Dose: 2 mg Documented by: Multi-Ingredient Ointment (Zinc Oxide 20% Oint 30 Gm Tube) 1 applic TOP PRN PRN PRN Reason: Skin Care Last Admin: 03/02/21 02:45 Dose: 1 applic Documented by: Ondansetron HCl (Ondansetron 4 Mg/2 Ml Vial) 4 mg IVP Q6HR PRN PRN Reason: Nausea / Vomiting Last Admin: 02/28/21 00:14 Dose: 4 mg Documented by: Sodium Chloride (Sodium Chloride Flush 0.9% 10 Ml Syringe) 10 ml IVP PRN PRN PRN Reason: NEEDED PER PROVIDER ORDERS Last Admin: 02/25/21 09:54 Dose: 10 ml Documented by: Sodium Chloride (Sodium Chloride Flush 0.9% 10 Ml Syringe) 10 ml IVP 0100,0900,1700 [facility] Last Admin: 03/02/21 09:22 Dose: Not Given Documented by: Albuterol Sulfate [Proair Hfa Inhaler] 2 puffs INH Q4HR 02/21/21 Amlodipine Besylate [Norvasc] 2.5 mg PO BID 02/21/21 Aspirin/Dipyridamole [Aspirin-Dipyridam ER 25-200 mg] 1 tab PO BID 02/21/21 Citalopram [CeleXA] 30 mg PO DAILY 02/21/21 Desipramine HCl 100 mg PO HS 02/21/21 Donepezil [Aricept] 10 mg PO HS 02/21/21 HYDROcod/ACETAM 5/325 [[place] 5/325] 1 tab PO Q4HR 02/21/21 Loratadine [Claritin] 10 mg PO BID 02/21/21 Losartan Potassium [Cozaar] 100 mg PO DAILY 02/21/21 Memantine HCl [Namenda] 10 mg PO BID 02/21/21 Metoprolol Succinate [Kapspargo Sprinkle] 50 mg PO DAILY 02/21/21 Multivitamin 1 tab PO DAILY 02/21/21 Nystatin Cream [Mycostatin Cream] 1 applic TOP QID 02/21/21 Omeprazole Magnesium 40 mg PO QDAC 02/21/21 Solifenacin Succinate [Vesicare] 10 mg PO DAILY 02/21/21 polyethylene glycoL 3350 [Polyethylene Glycol 3350] 17 gm PO DAILY 02/21/21 Objective - Vital Signs/Intake & Output Reviewed Vital Signs: Yes Vital Signs: Vital Signs x48h Temp Pulse Resp BP Pulse Ox 03/02/21 01:22 36.7 C 94 18 165/57 H 92 Intake & Output: Intake & Output 02/27/21 02/28/21 03/01/21 03/02/21 23:59 23:59 23:59 23:59 Intake Total 1968.75 1848.75 966.25 990 Output Total 792 171 9044 500 Balance 1618.75 1148.75 -58.75 490 - Objective General Appearance: positive: No acute distress, Lethargic Respiratory: positive: No respiratory distress - Lab Results Fish Bones: 02/25/21 05:50 02/25/21 05:50 Assessment/Plan - Problem List (1) Altered mental status Impression: She has had improvement since admission but still quite lethargic and does not interact very much. She is also nonverbal. Plan to discharge home tomorrow on hospice. Qualifiers: Altered mental status type: somnolence Qualified Code(s): R40.0 - Somnolence (2) Aortic stenosis Impression: This was evident on the echocardiogram obtained this admission. She is not a candidate for intervention and the focus is now her comfort. (3) NSTEMI (non-ST elevated myocardial infarction) Impression: The concern was for NSTEMI and she was treated medically initially. Echocardiogram revealed preserved ejection fraction without any wall motion normalities. Lovenox has since been discontinued. Given the goals focus on her comfort, we have discontinued all cardiac medications. (4) Dementia Impression: She has had progressive dementia and has been declining over the past few months. The focus is now on her comfort. (5) History of stroke with residual deficit Impression: She has a history of stroke with residual right-sided deficit that has left her wheelchair-bound. The goal is now to focus on her comfort and hospice has been contacted. (6) UTI (urinary tract infection) Impression: Initial concern was for urinary tract infection but urine culture had no growth. Antibiotics have since been discontinued. Qualifiers: Urinary tract infection type: acute cystitis Hematuria presence: without hematuria Qualified Code(s): N30.00 - Acute cystitis without hematuria
[2021-03-02] MEDS: CITALOPRAM 10 MG TABLET PO SCH (09:21)
[2021-03-03] MEDS: SODIUM CHLORIDE FLUSH 0.9% 10 ML SYRINGE IVP SCH ×2 (01:45→07:47)
[2021-03-03] MEDS: ZINC OXIDE 20% OINT 30 GM TUBE TOP PRN ×2 (02:00→04:30)
[2021-03-03] MEDS: DEXTROSE 5%-0.45% NACL 1,000 ML IV SCH (06:14)
[2021-03-03] MEDS: CITALOPRAM 10 MG TABLET PO SCH (07:47)
--- NOTE | 2021-03-03 08:15 | Discharge Plan ---
Discharge Plan Problem Reviewed?: Yes Disposition: 50 Hospice/Home DC/Xfer Condition: Poor Health Concerns: You were admitted to the hospital because of altered mental status. The cause of this was not clear. We thought you may have had a urinary infection but despite antibiotics there was no improvement. After discussion with your family, a decision was made to focus on your comfort and so no further testing was obtained. You will be discharged home on hospice with the goal of making sure you are comfortable. Plan of Treatment: We have written prescriptions to your pharmacy for medications such as morphine and lorazepam. These are to be used to make sure you are not in pain or in distress. You will be seen by hospice this afternoon. Care Goals: The goal is to ensure your comfort. Assessment: Family expressed understanding of the treatment plan. Additional Instructions or Follow Up instructions: You will be following up with hospice this afternoon. Follow-Up Care: Hospice No Smoking: If you smoke, Please STOP! Call for help. Follow-up with: Shayla Burroughs MD [Primary Care Provider] -
--- NOTE | 2021-03-03 08:16 | DISCHARGE SUMMARY ---
"Discharge Summary Admit Date: 02/21/21 Discharge Date: 03/03/21 Discharging Provider: Valdo Jeffrey Primary Care Provider: Shayla Burroughs Code Status: Do Not Attempt Resuscitation Condition at Discharge: Poor Discharge Disposition: 50 Hospice/Home DC/Xfer - DIAGNOSES Admission Diagnoses: NSTEMI UTI Altered mental status Hypertension Dementia GERD Depression Overactive bladder Discharge Diagnoses with Status of Each Condition: Altered mental status - ongoing. Aortic stenosis - ongoing. NSTEMI - stable. Dementia - stable. History of stroke with residual deficit - stable. UTI - resolved. - HPI History of Present Illness: H&P per Dr. Beckeru: Patient is an 85-year-old female with medical history significant for previous CVA with right-sided residual weakness and contracture, dementia, hypertension, depression, GERD, overactive bladder who was brought to the ED by EMS. Her called 911 this morning because the patient was unresponsive this morning around 10 am when he tried to wake her up At bedside the patient is unresponsive to verbal stimuli. The reports that she complained of mild left leg pain before bed the previous night. In the ED work-up included troponin level which came back at 1445.2. Urine analysis was also suggestive of a UTI. Family opted for conservative/medical management only. As a result the patient was presented for admission for further treatment. - CONSULTS | PROCEDURES Consultations: Hospice - HOSPITAL COURSE Hospital Course: Kirill was admitted to the floor for altered mental status which was initially thought to be secondary to urinary tract infection. She was treated with ceftriaxone IV and IV hydration. She was also noted to have NSTEMI and she was treated with therapeutic Lovenox. CT of the head showed no acute abnormalities. An echocardiogram was obtained which showed a preserved ejection fraction but she had severe aortic stenosis and severe concentric LVH. Despite treatment with IV fluids and antibiotics she had no improvement in her mentation. Urine culture ultimately grew no bacteria and it was felt less likely that she actuall y had a urinary tract infection. Given her mentation did not improve, goals of care discussion was held with the family and they ultimately decided to focus on her comfort and therefore an MRI of the brain was not obtained. We were considering an MRI given her history of stroke and concern for potential new infarct. All of the medication were discontinued except for IV fluids and she started on morphine IV as needed. Hospice was consulted and they agree that she would be an appropriate hospice admission. Unfortunately discharge was delayed for a few days due to the holiday weekend and that the family could not get caregivers at home until today. She is discharged today in a poor condition via BLS. Family has been with her throughout this hospitalization. She was not discharged on oral morphine or Ativan as hospice will be admitting her this afternoon and they will be providing her with the prescriptions for these - ALLERGIES Allergies/Adverse Reactions: Allergies Allergy/AdvReac Type Severity Reaction Status Date / Time amoxicillin Allergy Unknown Verified 02/21/21 12:44 [email or web address] Allergy Unknown Verified 02/21/21 12:44 - PHYSICAL EXAM AT DISCHARGE General Appearance: positive: Lethargic, Other (Nonverbal.) Eyes Bilateral: positive: Conjunctivae nml ENT: positive: ENT inspection nml, Dry mucous membranes. negative: No signs of dehydration Respiratory: positive: No respiratory distress. negative: Wheezes, Rales Cardiovascular: positive: Systolic murmur. negative: No murmur, Irregularly irregular, Tachycardia Skin: positive: Warm, Dry Extremities: positive: No pedal edema Neurologic/Psychiatric: positive: Other (She does not follow commands.) Physical Exam Other/Comments: Vital Signs - 24 hr 03/02/21 03/03/21 03/03/21 16:14 02:09 08:00 Temperature 37.4 C 37.6 C 36.9 C Heart Rate [ 87 77 Brachial] Heart Rate [ 105 H Radial] Respiratory 20 20 16 Rate Blood Pressure 157/47 H 171/51 H [Right Brachial artery] Blood Pressure 171/74 H [Right Radial artery] O2 Saturation 95 96 98 Oxygen O2 Source Room air - LABS Result Diagrams: 02/25/21 05:50 02/25/21 05:50 - FOLLOW UP Follow Up: She will be seen by hospice this afternoon. - TIME SPENT Time Spent in Discharge (Minutes): 31"
[2021-03-03 08:37] VITALS: BP 171/74
[2021-03-03] MEDS: MORPHINE 2 MG/ML CARPUJECT IVP PRN (14:28)
== END 2021-03-03 15:01 | disposition hospice, home (50) | DRG 80 ==
LOC: EDUNIT# → ED 12:32 → MS2 14:52
PROVIDERS: ADMIT Internal Medicine; ATTEND Internal Medicine
DX: R40.0 Somnolence (principal); I21.4 Non-ST elevation (NSTEMI) myocardial infarction; I69.951 Hemiplegia and hemiparesis following unspecified cerebrovascular disease affecting right dominant side; N30.00 Acute cystitis without hematuria; Z20.822 Contact with and (suspected) exposure to COVID-19; F03.90 Unspecified dementia, unspecified severity, without behavioral disturbance, psychotic disturbance, mood disturbance, and anxiety; I10 Essential (primary) hypertension; I08.0 Rheumatic disorders of both mitral and aortic valves; K21.9 Gastro-esophageal reflux disease without esophagitis; F32.9 Major depressive disorder, single episode, unspecified; N32.81 Overactive bladder; Z66 Do not resuscitate; Z51.5 Encounter for palliative care; Z79.51 Long term (current) use of inhaled steroids; Z79.82 Long term (current) use of aspirin; Z79.891 Long term (current) use of opiate analgesic; Z79.899 Other long term (current) drug therapy
CPT/HCPCS: 36415; 51701; 70450; 71045; 71260; 80048; 80053; 80306; 80307; 81001; 83605; 83690; 83880; 84443; 84484; 85025; 87040; 87086; 87631; 93005; 93306; 99285; A9270; G0480; J1650; Q9967; 0202U; 80320; 80329; 81003

== ENCOUNTER 2021-03-03 15:01 | Outpatient (CLI) | payer MEDICARE, OTHER | END 2021-03-03 15:02 | disposition home or self-care (01) | LOC: EMS 15:01 | PROVIDERS: ATTEND Internal Medicine | DX: R41.82 Altered mental status, unspecified (principal); Z74.01 Bed confinement status | CPT/HCPCS: A0425; A0428 ==